=== PATIENT | male | born 1950 | race Caucasian/White ===

== ENCOUNTER 2017-05-30 10:13 | Emergency (ER) | payer MEDICARE, OTHER ==
[2017-05-30] MEDS ORDERED: Ketorolac Tromethamine 30 MG/ML VIAL ONE (11:04)
--- NOTE | 2017-05-30 11:28 | RAD ---
LUMBAR SPINE THREE VIEWS: History: Hip pain. Back pain radiating down the back leg. FINDINGS: There are loss of lumbar lordosis with straightening of the lumbar spine. Degenerative changes are p resent at multiple levels. No fracture, subluxation, or bony destruction is identified. IMPRESSION: Lumbar spondylosis. POS: [facility]
--- NOTE | 2017-05-30 11:30 | RAD ---
FRONTAL RADIOGRAPH PELVIS: Date: 05-30-17 Comparison: None. History: Pain. FINDINGS: The ==== appears intact. There is no widening of the sacroiliac joints or the pubic symphysis. There is multilevel lumbar spine osteophyte formation. There is no acute fracture or evidence of dislocat ion. There is curvilinear lucency in the region of the femoral head/neck junction superiorly on the left which is likely artifactual on the basis of osteophyte associated with the posterior limb of the iain tabulum. IMPRESSION: Degenerative changes. No acute osseous abnormality apparent. POS: [facility]
== END 2017-05-30 12:45 | disposition home or self-care (01) ==
LOC: ERS 10:13
DX: M54.31 Sciatica, right side (principal); I25.2 Old myocardial infarction; E78.5 Hyperlipidemia, unspecified; E11.9 Type 2 diabetes mellitus without complications; I10 Essential (primary) hypertension; Z79.82 Long term (current) use of aspirin; Z79.84 Long term (current) use of oral hypoglycemic drugs; Z79.899 Other long term (current) drug therapy
CPT/HCPCS: 72100; 72170; 96372; J1885

== ENCOUNTER 2017-08-14 09:00 | Outpatient (CLI) | payer MEDICARE ==
[2017-08-14 14:19] LABS: Hemoglobin 13.7 g/dL (14.0-18.0); Mean Corpuscular HGB CONC 33.3 g/dL (32.0-36.0); Mean Corpuscular Hemoglobin 28.8 pg (27.0-31.0); Mean Corpuscular Volume 86.4 fl (80.0-94.0); Mean Platelet Volume 9.5 fL (7.4-10.4); Platelet Count 144 thou/uL (130-400); RBC Distribution Width 12.8 % (11.5-14.5); Red Blood Cell (RBC) Count 4.77 mill/uL (4.70-6.10); White Blood Cell (WBC) Count 4.9 thou/uL (4.8-10.8)
[2017-08-14 14:24] LABS: PTT 28.5 SEC (22.9-36.1); Prothrombin Time 13.3 SEC (12.0-14.7)
[2017-08-14 14:41] LABS: Anion Gap 16 mmol/L (10-20); BUN (Urea Nitrogen) 22 mg/dL (8.4-25.7); Calc. Creatinine Clearance 0 mL/min (70-130); Calcium 9.4 mg/dL (7.8-10.44); Carbon Dioxide 26 mmol/L (23-31); Chloride 107 mmol/L (98-107); Estimated GFR-MDRD 83; Glucose 145 mg/dL (80-115); Potassium 4.6 mmol/L (3.5-5.1); Sodium 144 mmol/L (136-145)
== END 2017-08-14 09:01 | disposition home or self-care (01) ==
LOC: LABBT 09:00
PROVIDERS: ATTEND Surgery
DX: Z01.818 Encounter for other preprocedural examination (principal); M48.061 Spinal stenosis, lumbar region without neurogenic claudication; M54.16 Radiculopathy, lumbar region
CPT/HCPCS: 80048; 85027; 85610; 85730; 93005; 93010

== ENCOUNTER 2017-08-22 07:28 | Day surgery (SDC) | payer MEDICARE ==
[2017-08-14 12:40] VITALS: BMI 36.6
[2017-08-22] MEDS ORDERED: CEFAZOLIN/Water 2 GM/20 ML SYRINGE ONE (08:43)
[2017-08-22] MEDS ORDERED: Thrombin 5000 UNITS/5 ML VIAL ONE (10:26)
[2017-08-22] MEDS ORDERED: Bacitracin Zinc Ointment 30 gm TUBE ONE (10:26)
[2017-08-22] MEDS ORDERED: Sodium Chloride 0.9% 10 ML ONE (10:26)
[2017-08-22] MEDS ORDERED: Midazolam HCl 2 mg/2 ml Vial ONE (10:35)
[2017-08-22] MEDS ORDERED: Fentanyl 250 MCG/5 ML VIAL ONE (10:43)
[2017-08-22] MEDS ORDERED: Ondansetron HCl/PF 4 MG/2 ML Vial ONE (11:23)
[2017-08-22] MEDS ORDERED: PHENYLEPHRINE-NS 100 MCG/ML 10 ML SYRINGE ONE (11:23)
[2017-08-22] MEDS ORDERED: Lidocaine 1% PF 5 ML VIAL ONE (11:23)
[2017-08-22] MEDS ORDERED: PROPOFOL 200 MG/20 ML VIAL ONE (11:23)
[2017-08-22] MEDS ORDERED: Ketorolac Tromethamine 30 MG/ML VIAL ONE (11:23)
[2017-08-22] MEDS ORDERED: Glycopyrrolate 0.2 MG/ML 5 ML SYRINGE ONE (11:23)
[2017-08-22] MEDS ORDERED: Ondansetron HCl/PF 4 MG/2 ML Vial IVP PRN ×2 (13:06→14:05)
[2017-08-22] MEDS ORDERED: Mag-Al 1200 mg/1200 mg/30 ML UDCUP PO PRN (13:06)
[2017-08-22] MEDS ORDERED: Acetaminophen/Codeine 30-300mg Tablet PO PRN (13:06)
[2017-08-22] MEDS ORDERED: Fleet Enema 133 ML BOT PR PRN (13:06)
[2017-08-22] MEDS ORDERED: Promethazine HCl 25 MG/ML VIAL IM PRN (13:06)
[2017-08-22] MEDS ORDERED: Milk Of Magnesia 30 ML UDCUP PO PRN (13:06)
[2017-08-22] MEDS ORDERED: Bisacodyl 10 MG SUPP PR PRN (13:06)
[2017-08-22] MEDS ORDERED: traMADol HCl 50 MG TAB PO PRN (13:06)
[2017-08-22] MEDS ORDERED: tiZANidine HCl 4 MG TAB PO PRN (13:06)
[2017-08-22] MEDS ORDERED: SUGAMMADEX SODIUM 200 MG/2 ML VIAL ONE (13:13)
[2017-08-22] MEDS ORDERED: Metoprolol Tartrate 5 MG/5 ML VIAL ONE (13:18)
[2017-08-22] MEDS ORDERED: Morphine 4 MG/ML Carpuject SLOW IVP PRN (13:30)
[2017-08-22] MEDS ORDERED: Fentanyl 100 MCG/2 ML VIAL ONE (14:04)
[2017-08-22] MEDS: HYDROcodone/Acetaminophen 7.5/325 mg Tablet PO PRN (16:12)
[2017-08-22] MEDS: Gabapentin 300 MG CAP PO SCH ×2 (16:12→20:31)
[2017-08-22] MEDS: Sodium Chloride 0.9% 1,000 ML IV SCH (16:13)
[2017-08-22] MEDS: metFORMIN 500 MG TAB PO SCH (16:25)
[2017-08-22] MEDS: CEFAZOLIN/Water 2 GM/20 ML SYRINGE SLOW IVP SCH (16:25)
--- NOTE | 2017-08-22 19:41 | OP ---
OR: 12. WOUND TYPE: Type 1 wound. SURGEON: Marcus Bhatt M.D. EXPERIMENTAL MACHINIST: Hemanth Barragan PA-C. PREPROCEDURE DIAGNOSIS: Lumbar stenosis with low back and leg pain. POSTPROCEDURE DIAGNOSES: Lumbar stenosis with low back and leg pain. PROCEDURE: 1. L3-L4 and L4-L5 laminectomies, partial facetectomies, foraminotomies of the L3, L4, and L5 roots. DESCRIPTION OF PROCEDURE: After informed consent was obtained from the patient, the patient brought to OR 12. Proper patient pause and identification was carried out. He was positioned prone on the o perating room table. All appropriate points were padded and identified the L3, L4, L5 dorsal spines. An incision was drawn out over this region. This area was sterilely cleansed, prepared, and draped . Proper patient pause and identification was carried out. The wound was then opened with a combina tion of sharp, monopolar, and blunt dissection, and the L3, L4, L5 dorsal spines and lamina were expo sed. Localization film confirmed our area of interest. We then performed L3, L4, L5 laminectomies, partial facetectomies with foraminotomies over the L3, L4, L5 nerve roots. We had excellent decompre ssion of the common dural tube and the nerve roots. There was no spinal fluid leak. Hemostasis was maximized throughout. The wound was then closed in anatomic layers following the sprinkling of vanco mycin powder. The patient then emerged from anesthesia.
[2017-08-22] MEDS: Fenofibrate Nanocrystallized 145 MG TAB PO SCH (20:30)
[2017-08-22] MEDS: Rosuvastatin 20 MG TAB PO SCH (20:31)
[2017-08-23] MEDS: Sodium Chloride 0.9% 1,000 ML IV SCH ×2 (01:22→14:21)
[2017-08-23] MEDS: CEFAZOLIN/Water 2 GM/20 ML SYRINGE SLOW IVP SCH (01:22)
[2017-08-23] MEDS: Acetaminophen 325 MG TAB PO PRN ×2 (08:13→16:15)
[2017-08-23] MEDS: Gabapentin 300 MG CAP PO SCH ×3 (08:13→20:12)
[2017-08-23] MEDS: Lisinopril 20 MG TAB PO SCH (08:13)
[2017-08-23] MEDS: Isosorbide Dinitrate 20 MG TAB PO SCH (08:13)
[2017-08-23] MEDS: metFORMIN 500 MG TAB PO SCH ×2 (08:13→17:28)
[2017-08-23] MEDS: Ubidecarenone 50 MG CAP PO SCH (09:16)
--- NOTE | 2017-08-23 10:07 | PRG ---
DATE OF SERVICE: 08/23/2017 Mr. Benedict is postoperative day 1 from lumbar decompression. He is doing well with improvement in h is right leg pain. He is starting to mobilize. We are working on pain issues at this point. Hopefu lly he may be dismissed later today. He has good strength in his lower extremity myotomes.
[2017-08-23] MEDS: Rosuvastatin 20 MG TAB PO SCH (20:12)
[2017-08-23] MEDS: Fenofibrate Nanocrystallized 145 MG TAB PO SCH (20:12)
[2017-08-23] MEDS: HYDROcodone/Acetaminophen 7.5/325 mg Tablet PO PRN (22:49)
[2017-08-24] MEDS: HYDROcodone/Acetaminophen 7.5/325 mg Tablet PO PRN ×2 (02:28→09:56)
[2017-08-24] MEDS: Sodium Chloride 0.9% 1,000 ML IV SCH (05:15)
[2017-08-24] MEDS: metFORMIN 500 MG TAB PO SCH (08:01)
[2017-08-24] MEDS: Gabapentin 300 MG CAP PO SCH (08:01)
[2017-08-24] MEDS: Lisinopril 20 MG TAB PO SCH (08:01)
[2017-08-24] MEDS: Isosorbide Dinitrate 20 MG TAB PO SCH (08:01)
[2017-08-24] MEDS: Ubidecarenone 50 MG CAP PO SCH (09:56)
[2017-08-24 12:06] VITALS: BP 176/82; TEMP 98.1
--- NOTE | 2017-08-24 13:47 | PRG ---
DATE OF SERVICE: 08/24/2017 Mr. Benedict continues to do well following his lumbar laminectomy. He is mobilizing and feeling impr ovement in his leg pain. His wound is healing well. His strength is excellent throughout his lower extremity myotomes. We are arranging for dismissal for the patient.
== END 2017-08-24 13:11 | disposition home or self-care (01) ==
LOC: SDC 07:28 → T4-A 13:06 → SDC 08-24 13:11
PROVIDERS: ATTEND Surgery
PROC: 01NB0ZZ Release Lumbar Nerve, Open Approach (ICD-10-PCS; principal; 2017-08-22)
DX: M48.061 Spinal stenosis, lumbar region without neurogenic claudication (principal); M54.16 Radiculopathy, lumbar region; I25.2 Old myocardial infarction; K21.9 Gastro-esophageal reflux disease without esophagitis; E78.5 Hyperlipidemia, unspecified; E11.9 Type 2 diabetes mellitus without complications; I10 Essential (primary) hypertension; Z79.82 Long term (current) use of aspirin; Z79.84 Long term (current) use of oral hypoglycemic drugs; Z79.1 Long term (current) use of non-steroidal anti-inflammatories (NSAID); Z79.899 Other long term (current) drug therapy; Z98.890 Other specified postprocedural states
CPT/HCPCS: 36416; 76001; A4216; J1885; J2001; J2250; J2270; J2405; J2704; J3010; J3370; J3490

== ENCOUNTER 2017-08-24 20:27 | Observation (INO) | payer MEDICARE ==
[2017-08-24 21:32] LABS: #Eosinphils 0.2 thou/uL (0.0-0.7); #Lymphocytes 2.3 thou/uL (1.20-3.40); #Monocytes 0.9 thou/uL (0.11-0.59); #Neutrophils 4.5 thou/uL (1.40-6.50); %Basophils 0.5 % (0.0-1.0); %Eosinophils 2.1 % (0.0-10.0); %Lymphocytes 29.1 % (21.0-51.0); %Monocytes 10.8 % (0.0-10.0); %Neutrophils 57.5 % (42.0-75.0); Hemoglobin 12.1 g/dL (14.0-18.0); Mean Corpuscular HGB CONC 32.3 g/dL (32.0-36.0); Mean Corpuscular Hemoglobin 27.7 pg (27.0-31.0); Mean Platelet Volume 9.3 fL (7.4-10.4); Platelet Count 120 thou/uL (130-400); RBC Distribution Width 12.6 % (11.5-14.5); Red Blood Cell (RBC) Count 4.37 mill/uL (4.70-6.10); White Blood Cell (WBC) Count 7.9 thou/uL (4.8-10.8)
[2017-08-24 21:51] LABS: ALT (SGPT) 16 U/L (8-55); AST (SGOT) 20 U/L (5-34); Albumin 3.6 g/dL (3.4-4.8); Alkaline Phosphatase 44 U/L (40-150); Anion Gap 13 mmol/L (10-20); BUN (Urea Nitrogen) 15 mg/dL (8.4-25.7); Bilirubin, Total 0.6 mg/dL (0.2-1.2); Calc. Creatinine Clearance 0 mL/min (70-130); Calcium 9.2 mg/dL (7.8-10.44); Carbon Dioxide 28 mmol/L (23-31); Chloride 105 mmol/L (98-107); Estimated GFR-MDRD 69; Globulin 2.6 g/dL (2.4-3.5); Glucose 229 mg/dL (80-115); Potassium 3.7 mmol/L (3.5-5.1); Protein, Total 6.2 g/dL (5.8-8.1); Sodium 142 mmol/L (136-145)
[2017-08-24 22:58] LABS: Bilirubin Negative (Negative); Blood, Urine Negative (Negative); Clarity CLEAR (Clear); Glucose, Urine (Dipstick) >=1000 mg/dL (Negative); Leukocyte Negative (Negative); Nitrite Negative (Negative); Protein, Urine (Dipstick) Trace mg/dL (Neg-Trace); Specific Gravity, Urine 1.027 (1.002-1.036); pH, Urine 6.5 (5.0-9.0)
[2017-08-25] MEDS ORDERED: Ondansetron HCl/PF 4 MG/2 ML Vial IVP PRN (00:04)
[2017-08-25] MEDS ORDERED: Acetaminophen/Codeine 30-300mg Tablet PO PRN ×2 (00:04)
[2017-08-25] MEDS ORDERED: Morphine 2 MG/ML SYRINGE SLOW IVP PRN (00:04)
[2017-08-25] MEDS ORDERED: Morphine 4 MG/ML Carpuject SLOW IVP PRN (00:04)
--- NOTE | 2017-08-25 01:51 | HP ---
HISTORY OF PRESENT ILLNESS: Mr. Benedict is a 67-year-old male that had L3 through L5 laminectomy with Dr. Bhatt on 08/22/2017. He was discharged on Monday from [facility]. Today, he returns to [facility] with subjective leg weakness, hypertension, hallucinations. He called earlier this afternoon and was having severe bilateral leg pain. I advised him to take an increase in his [place] from 5/325 to 10/325. Apparently, this did not help. Thereafter presenting to the emergency department at [facility], I evaluated him, he has some subjective leg weakness; however, he has got good strength in his lower extremities bilaterally. He is able to stand and walk. There are some dermatomal radicular symptoms in the L5 dermatome bilaterally, but most of the pain is in the low back and buttock. He reports having a hypertensive episode today in which he felt dizzy and got diaphoretic. Systolic blood pressure was 240mmHg at that time in the home. This was obtained by his daughter who is a NON DESTRUCTIVE EVALUATION SPECIALIST. He denies any bowel or bladder incontinence. On exam, he is having some urinary retention, and which was catheterized and 500 mL urine was retrieved. Neurosurgery was consulted because of the pain postoperatively. REVIEW OF SYSTEMS: Ten-point review of systems completed. The patient reports low back pain, bilateral leg pain. Denies any neck pain, denies bowel or bladder incontinence or saddle anesthesia. Denies any headache at that time. Admits to hypertensive episode, diaphoretic, dizziness. All other review of systems is negative unless stated in the above HPI. PAST MEDICAL HISTORY: Myocardial infarction x2, GERD, flu vaccine not up to date, history of diabetes, hyperlipidemia, high cholesterol, and hypertension. PAST SURGICAL HISTORY: Cardiac stent placed in 2000. PSYCHIATRIC HISTORY: No previous psychiatric history. SOCIAL HISTORY: Patient drinks socially. He denies any drug use. Has no smoking history. ALLERGIES: CODEINE PHOSPHATE. CURRENT MEDICATIONS: 1. Aspirin 81 mg oral. 2. Metformin 500 mg oral. 3. Naproxen 250 mg oral. 4. CoQ10 strength 250 mg oral. 5. Isosorbide mononitrate extended-release tablet 24 hours 30 mg oral. 6. Crestor 20 mg oral. 7. Metoprolol tartrate 30 mg oral. 8. Lisinopril 20 mg oral. 9. Fenofibrate 150 mg oral. On admission to the emergency department, blood pressure was 194/95, temperature 98.2. Pain was 8/10. O2 sats was 96% on room air. PHYSICAL EXAMINATION: GENERAL: The patient is hypertensive. Vital signs have been reviewed. He is afebrile. He is alert and oriented to person, place, and time. HEENT: Normocephalic, atraumatic. Hearing intact. Moist mucous membranes. Trachea is midline. EYES: Pupils are equal and reactive to light. Extraocular muscles are intact. Sclerae are white, nonicteric. There is no nystagmus. NECK: The patient has a supple neck. Normal range of motion. No midline tenderness on the midline cervical spine. No meningeal signs. RESPIRATORY: The patient has bilateral symmetric chest rise. Appears to be no shortness of breath. CARDIOVASCULAR: The patient has regular rate and rhythm, normal S1, S2 heart sounds. EXTREMITIES: No distal cyanosis or clubbing noted. BACK: The patient positive for straight leg raise on the right and left causing right-sided pain and left-sided pain. He has lumbar spinal incision, was closed with dimitri clean, dry, and intact. There are no signs of erythema or purulent discharge from the incision. Lower extremity, patient has active range of motion in the hip that causes pain, passive range of motion that causes pain. Sensation is intact. There are no focal, motor, or sensory deficits in the lower extremities. NEUROLOGIC: Cranial nerves II through XII are grossly intact. Speech is fluent , answers my questions appropriately. Patient had abnormal gait antalgic when walking. No signs of cauda equina syndrome. PSYCHIATRIC: The patient has normal psychiatric exam. Normal affect. ASSESSMENT: Mr. Benedict is a 67-year-old male status post L3 through L5 laminectomy with Dr. Bhatt on 08/22/2017. I will admit him to observation overnight and control his pain. We will start some Decadron for nerve pain in the lower extremity and low-dose gabapentin. If there are any further questions , please feel free to contact Neurosurgery. [facility]
[2017-08-25 02:23] VITALS: BMI 40.7
[2017-08-25] MEDS: Dexamethasone 4 mg/ml Vial SLOW IVP SCH ×3 (03:06→17:55)
[2017-08-25] MEDS: Sodium Chloride 0.9% 1,000 ML IV SCH ×2 (03:06→14:21)
[2017-08-25] MEDS ORDERED: Dextrose 5% in Water 1,000 ML IV PRN (04:20)
[2017-08-25] MEDS ORDERED: Dextrose 50% Abboject 50 ML SYRINGE SLOW IVP PRN (04:20)
[2017-08-25] MEDS ORDERED: HumaLOG 300 UNITS/3 ML VIAL SC PRN (04:20)
[2017-08-25] MEDS: Tamsulosin HCl 0.4 MG CAP PO SCH (05:34)
[2017-08-25] MEDS: HYDROcodone/Acetaminophen 10/325 mg Tablet PO PRN ×4 (06:28→21:18)
--- NOTE | 2017-08-25 08:01 | PDOC.PN ---
- Subjective Encounter Start Date: 08/25/17 Encounter Start Time: 07:45 Subjective: Consult for med mgmt. s/p Lumbar laminectomies L3-L5 POD #3 admitted -: for pain, leg weakness and urinary urgency. Hx of DM, HTN, CAD on med -: tx. BP labile at home but stable currently. - Objective MAR Reviewed: Yes Vital Signs & Weight: Vital Signs (12 hours) Temp Pulse Resp BP BP Pulse Ox 08/25/17 07:53 98.3 F 86 20 171/90 H 94 L 08/25/17 06:24 98.8 F 87 18 176/90 H 96 08/25/17 01:00 98.1 F 70 18 136/79 94 L Weight Weight 244 lb 11.41 oz I&O: 08/24/17 08/25/17 08/26/17 06:59 06:59 06:59 Intake Total 241 Balance 241 Result Diagrams: 08/24/17 21:21 08/24/17 21:21 Additional Labs: Accuchecks 08/25/17 05:29 POC Glucose 172 H EKG Reviewed by me: Yes (NSR in 70's, no acute ST-T wave changes) Dx/Plan (1) HTN (hypertension) Code(s): I10 - ESSENTIAL (PRIMARY) HYPERTENSION Status: Chronic Qualifiers: Hypertension type: essential hypertension Qualified Code(s): I10 - Essential (primary) hypertension (2) DM II (diabetes mellitus, type II), controlled Code(s): E11.9 - TYPE 2 DIABETES MELLITUS WITHOUT COMPLICATIONS Status: Chronic (3) CAD (coronary artery disease) Code(s): I25.10 - ATHSCL HEART DISEASE OF [place] CORONARY ARTERY W/O ANG PCTRS Status: Acute (4) Status post lumbar laminectomy Code(s): Z98.890 - OTHER SPECIFIED POSTPROCEDURAL STATES Status: Acute - Plan * .
[2017-08-25] MEDS: metFORMIN 500 MG TAB PO SCH ×2 (08:24→17:00)
[2017-08-25] MEDS: Gabapentin 300 MG CAP PO SCH ×3 (08:25→20:30)
[2017-08-25] MEDS: Isosorbide Dinitrate 20 MG TAB PO SCH (08:25)
[2017-08-25] MEDS ORDERED: Lisinopril 20 MG TAB PO SCH ×2 (09:00→19:30)
--- NOTE | 2017-08-25 09:36 | PRG ---
DATE OF SERVICE: 08/25/2017 Mr. Benedict was readmitted late last night with complaints of hypertension, blurred vision and possib le hallucinations with subjective bilateral lower extremity leg weakness. The patient is status post L3-L5 laminectomies on 08/22/[address] Bhatt. The patient states in regards to his back symptoms he is feeling much better. He was placed on Decadron 4 mg q.6 hours and Protonix as well as gabapen tin. Our medical colleagues were consulted in regards to patient's medical concerns as well. At this time , the patient needs medical management. In regards to his surgery he is doing well. He has asked megan ugalde that he go to a prison versus rehab as long as his insurance will pay for this. [place] they not, he may be a good candidate for home health therapy once his medical conditions are under better control including diabetes and hypertension. We appreciate our [facility] colleagues following the patient. At this time, he remains at neurologic baseline with good strength in the bilateral lower extremities and his incision is clean, dry, and intact, closed with dimitri without any dehiscence or drainage. I would like to limit the amount of Decadron he is taking and I am comfortable with him c oming off of this at any time, especially again given the fact that he has had difficulty with managi ng his blood sugar. We will wait for suggestions per case management for discharge planning. [facility] [facility] team will take over if he is still admitted tomorrow.
[2017-08-25] MEDS ORDERED: cloNIDine 0.1 MG TAB PO PRN (11:19)
[2017-08-25] MEDS: Insulin Regular 300 UNITS/3 ML VIAL SC PRN ×2 (12:22→17:01)
[2017-08-25] MEDS: hydrALAZINE 20 MG/ML VIAL SLOW IVP PRN (17:02)
--- NOTE | 2017-08-25 17:16 | CON ---
DATE OF CONSULTATION: 08/25/2017 DATE OF ADMISSION: 08/25/2017 ATTENDING PHYSICIAN: Dr. Marcus Bhatt. CONSULTING PHYSICIAN: Dr. Bipin Eduardo. REASON FOR CONSULT: Manage medical problems. HISTORY OF PRESENT ILLNESS: Mr. Benedict is a 67-year-old male with past medical history of hypertension, diabetes mellitus and recent laminectomy, who was readmitted because of severe back pa in, leg pain, weakness and confusion. The patient had laminectomy done 3 days ago and went home yest erday, but came back immediately because patient was having severe pain and elevated blood pressure a s well as diaphoresis, also was seeing things possibly in visual hallucinations. The patient could n ot ambulate because of severe pain to the back and legs. The patient was readmitted by the Neurosurg mi. The patient was found to have markedly elevated blood pressure. PAST MEDICAL HISTORY: 1. Hypertension. 2. Diabetes mellitus. 3. Chronic back pain. 4. History of myocardial infarction x2. 5. Gastroesophageal reflux disease. 6. Hyperlipidemia. PAST SURGICAL HISTORY: Status post laminectomy with recent L3-L5, status post cardiac stent in 2000. ALLERGIES: CODEINE PHOSPHATE. CURRENT MEDICATIONS: The patient is on aspirin 81 mg daily, isosorbide dinitrate 30 mg daily, lisino pril 20 mg daily, metformin 1000 b.i.d., metoprolol 50 mg daily, Crestor 20 mg daily, Protonix 40 mg daily, Flomax 0.4 mg daily and [place] 1 q.i.d. p.r.n. FAMILY HISTORY: Nothing contributory. SOCIAL HISTORY: The patient lives with family. No history of smoking. No history of alcohol intake . REVIEW OF SYSTEMS: Cardiovascular: No chest pain. No shortness of breath. Respiratory: No fever or cough. Gastrointestinal: No nausea or vomiting. No abdominal pain. Genitourinary: No distensi on. Central Nervous System: Has headache and weakness. PHYSICAL EXAMINATION: GENERAL: The patient is alert, awake and oriented x3. VITAL SIGNS: Temperature 98, pulse 86, respirations 20 and blood pressure 170/90. HEENT: Head is normocephalic and atraumatic. Pupils are equal and reactive. Nasopharynx is pink an d moist. NECK: Supple. No JVD. LUNGS: Bilateral air entry with no rales, no rhonchi. HEART: S1 and S2 regular. ABDOMEN: Soft. No distention, no tenderness. Normal bowel sounds present. RECTAL: Deferred. CENTRAL NERVOUS SYSTEM: No focal deficits. LABORATORY DATA AND X-RAY FINDINGS: CBC shows WBC of 7.9, hemoglobin 12, hematocrit 37 and platelets 120. Metabolic panel: Sodium 140, potassium 3.6, chloride 105, CO2 of 28, BUN 15, creatinine 1 and glucose 229. Urinalysis negative. EKG shows normal sinus rhythm. No acute ST-T wave changes seen. ASSESSMENT: 1. Diabetes mellitus. 2. Hypertension, uncontrolled. 3. Severe back pain and leg pain. 4. Weakness. 5. Recent laminectomy, L3-L5. PLAN: 1. Accu-Cheks a.c. and bedtime. 2. Sliding scale mild with regular insulin. 3. Start home medications. 4. Clonidine 0.1 q.6 p.r.n. 5. Discontinue Tylenol #3. Thank you very much for the consult. I will follow.
[2017-08-25] MEDS: Rosuvastatin 20 MG TAB PO SCH (20:29)
[2017-08-25] MEDS: Fenofibrate Nanocrystallized 145 MG TAB PO SCH (20:30)
[2017-08-26] MEDS: Sodium Chloride 0.9% 1,000 ML IV SCH ×2 (03:38→16:29)
[2017-08-26] MEDS: Dexamethasone 4 mg/ml Vial SLOW IVP SCH ×3 (03:38→16:29)
[2017-08-26] MEDS: Tamsulosin HCl 0.4 MG CAP PO SCH (05:44)
[2017-08-26] MEDS: Insulin Regular 300 UNITS/3 ML VIAL SC PRN ×3 (06:43→20:18)
[2017-08-26] MEDS: Isosorbide Dinitrate 20 MG TAB PO SCH (09:02)
[2017-08-26] MEDS: Gabapentin 300 MG CAP PO SCH ×3 (09:04→20:11)
[2017-08-26] MEDS: metFORMIN 500 MG TAB PO SCH ×2 (09:04→16:30)
[2017-08-26] MEDS: Lisinopril 20 MG TAB PO SCH ×2 (09:04→20:11)
--- NOTE | 2017-08-26 12:25 | PRG ---
DATE OF SERVICE: 08/26/2017 SUBJECTIVE: Mr. Benedict is now on his second day in his hospital stay after readmission following a lumbar laminectomy with Dr. Bhatt. We are awaiting rehab placement. He overall looks to be very mu ch more well-appearing than what he felt upon admission and has been ambulating with a walker in the hallway with relative ease. He does continue to have the expected backaches after this type of surge ry. We will continue to work with case management to see if we can get him over to rehab as soon as possible.
[2017-08-26] MEDS ORDERED: Amlodipine 5 MG TAB PO SCH (19:30)
[2017-08-26] MEDS: HYDROcodone/Acetaminophen 10/325 mg Tablet PO PRN (20:10)
[2017-08-26] MEDS: Rosuvastatin 20 MG TAB PO SCH (20:11)
[2017-08-26] MEDS: Fenofibrate Nanocrystallized 145 MG TAB PO SCH (20:13)
[2017-08-26] MEDS: tiZANidine HCl 4 MG TAB PO PRN (21:30)
[2017-08-27] MEDS: Dexamethasone 4 mg/ml Vial SLOW IVP SCH ×3 (02:10→17:24)
[2017-08-27] MEDS: Tamsulosin HCl 0.4 MG CAP PO SCH (06:00)
[2017-08-27] MEDS: Insulin Regular 300 UNITS/3 ML VIAL SC PRN ×4 (06:03→20:54)
[2017-08-27] MEDS: Isosorbide Dinitrate 20 MG TAB PO SCH (07:58)
[2017-08-27] MEDS: Lisinopril 20 MG TAB PO SCH ×2 (08:00→20:53)
[2017-08-27] MEDS: Gabapentin 300 MG CAP PO SCH ×3 (08:00→20:53)
[2017-08-27] MEDS: metFORMIN 500 MG TAB PO SCH ×2 (08:00→17:24)
[2017-08-27] MEDS ORDERED: Amlodipine 5 MG TAB PO SCH (09:00)
[2017-08-27] MEDS: Sodium Chloride 0.9% 1,000 ML IV SCH ×2 (09:46→20:58)
--- NOTE | 2017-08-27 10:47 | PRG ---
DATE OF SERVICE: 08/27/2017 SUBJECTIVE: Mr. Benedict this morning is doing well. He is ambulating in the hallway, still using a walker. His pain has diminished a great deal, but we are still awaiting on rehab placement. I do no t see any additional notes from case management other than the initial request for rehabilitation to the facility. It looks like PT is supposed to be coming to evaluate him today. We discussed a littl e bit that he may not even need rehabilitation, so we will see if he does well enough with physical t herapy, perhaps we can just get him home with may be home health. We will continue to monitor.
[2017-08-27] MEDS: hydrALAZINE 20 MG/ML VIAL SLOW IVP PRN (17:25)
[2017-08-27] MEDS ORDERED: Amlodipine 10 MG TAB PO SCH (18:00)
[2017-08-27] MEDS: Rosuvastatin 20 MG TAB PO SCH (20:53)
[2017-08-27] MEDS: Fenofibrate Nanocrystallized 145 MG TAB PO SCH (20:53)
[2017-08-27] MEDS: HYDROcodone/Acetaminophen 10/325 mg Tablet PO PRN (20:54)
[2017-08-27] MEDS: tiZANidine HCl 4 MG TAB PO PRN (22:25)
[2017-08-28] MEDS: Dexamethasone 4 mg/ml Vial SLOW IVP SCH ×2 (03:30→08:52)
[2017-08-28] MEDS: Tamsulosin HCl 0.4 MG CAP PO SCH (06:07)
[2017-08-28] MEDS: Insulin Regular 300 UNITS/3 ML VIAL SC PRN ×2 (06:07→10:59)
[2017-08-28 08:31] VITALS: TEMP 98.1
[2017-08-28] MEDS: Isosorbide Dinitrate 20 MG TAB PO SCH (08:58)
[2017-08-28] MEDS: metFORMIN 500 MG TAB PO SCH (08:58)
[2017-08-28] MEDS: Lisinopril 20 MG TAB PO SCH (08:59)
[2017-08-28] MEDS: Gabapentin 300 MG CAP PO SCH (08:59)
[2017-08-28] MEDS ORDERED: Amlodipine 10 MG TAB PO SCH (09:00)
--- NOTE | 2017-08-28 09:25 | PRG ---
DATE OF SERVICE: 08/28/2017 This is a subsequent inpatient progress note. SUBJECTIVE: Mr. Benedict is now postoperative day #6, having undergone multiple lumbar laminectomies with Dr. Bhatt. The patient has required several overnight stay in the hospital for management of h is medical issues. He does state that he has posterior thigh pain bilaterally at night, which is mor e cramping and discomfort. He states this is unchanged from surgery. He states that the additional leg pain he experienced before surgery was improved with surgery into the bilateral legs. He has bee n walking with a walker and working with physical therapy. He has good strength in the bilateral low er extremities and his incision is closed with dimitri. It is clean, dry and intact and without any signs of dehiscence or drainage. At this time, we are waiting for some medical management including some hypertension. I will start to taper his Decadron at this time and to also help with his hypergl ycemia. He is stable for rehabilitation, anytime he is cleared by the medical services as completed the necessary paperwork. Please call with any changes or questions in the patient's neurologic statu s. This is Hemanth Barragan PA-C dictating for Dr. Marcus Bhatt.
[2017-08-28] MEDS: Sodium Chloride 0.9% 1,000 ML IV SCH (10:46)
[2017-08-28 10:59] VITALS: BP 132/60
[2017-08-28] MEDS ORDERED: Dexamethasone 1 MG TAB PO SCH (12:00)
[2017-08-30] MEDS ORDERED: Dexamethasone 1 MG TAB PO SCH (06:00)
[2017-09-01] MEDS ORDERED: Dexamethasone 1 MG TAB PO SCH (06:00)
== END 2017-08-28 14:23 ==
LOC: ERS 20:27 → T4-B 08-25 00:06
PROVIDERS: ADMIT Surgery; ATTEND Surgery
DX: G89.18 Other acute postprocedural pain (principal); I10 Essential (primary) hypertension; E11.9 Type 2 diabetes mellitus without complications; G89.29 Other chronic pain; I25.2 Old myocardial infarction; K21.9 Gastro-esophageal reflux disease without esophagitis; E78.5 Hyperlipidemia, unspecified; Z88.5 Allergy status to narcotic agent; Z79.82 Long term (current) use of aspirin; Z79.84 Long term (current) use of oral hypoglycemic drugs; Z79.899 Other long term (current) drug therapy; Z95.5 Presence of coronary angioplasty implant and graft; Z98.890 Other specified postprocedural states
CPT/HCPCS: 51701; 80053; 81003; 82962 ×4; 85025; 93005; 96361 ×4; 96374; 96375; 96376 ×4; 97139; 97530; 97535; 99285; G0378 ×2; G8978; G8979; G8987; G8988; 36415; 36416; J0360; J1100; J1815; J8540

== ENCOUNTER 2017-09-09 14:36 | Inpatient (IN) | payer MEDICARE ==
[2017-09-09 15:48] LABS: Base Excess-Venous -0.6 mmol/L (-30.0-30.0); Bicarbonate (HCO3v) 24.1 mmol/L (1.0-85.0); CO2 Tension (PvCO2) 38.9 mmHg (41.0-51.0); Calcium, Ionized 1.14 mmol/L (1.12-1.32); Hemoglobin - Calc 15.7 g/dL (12.0-18.0); O2 Tension (PvO2) 56.3 mmHg (35.0-45.0); Potassium 4.5 mmol/L (3.4-4.7); T. Carbon Dioxide 25.3 mmol/L (1.0-85.0); vO2 Saturation-calc 88.9 % (0.0-100.0)
[2017-09-09] MEDS ORDERED: Insulin Regular 300 UNITS/3 ML VIAL ONE (15:50)
--- NOTE | 2017-09-09 15:54 | RAD ---
PORTABLE CHEST 1 VIEW: HISTORY: A 67-year-old male with cough. COMPARISON: 07/24/05. FINDINGS: Heart size is within normal limits. The lungs are clear. Minimal horizontal linear parenchymal ball ges in the lung bases probably related to some chronic change or mild subsegmental atelectasis. Ther e is less inspiration than on the prior study. IMPRESSION: Minimal horizontal linear bibasilar parenchymal changes, possibly some chronic change or subsegmental atelectasis with some associated decreased inspiration from the prior study. No confluent pneumonia , overt edema, or other acute process. POS: [facility]
[2017-09-09 15:55] LABS: #Basophils 0.1 thou/uL (0.0-0.2); #Eosinphils 0.1 thou/uL (0.0-0.7); #Lymphocytes 1.8 thou/uL (1.20-3.40); #Monocytes 0.6 thou/uL (0.11-0.59); #Neutrophils 9.4 thou/uL (1.40-6.50); %Basophils 0.4 % (0.0-1.0); %Lymphocytes 15.2 % (21.0-51.0); %Monocytes 5.3 % (0.0-10.0); %Neutrophils 78.1 % (42.0-75.0); Hemoglobin 15.5 g/dL (14.0-18.0); Mean Corpuscular HGB CONC 34.6 g/dL (32.0-36.0); Mean Corpuscular Hemoglobin 29.1 pg (27.0-31.0); Mean Corpuscular Volume 84.1 fl (80.0-94.0); Mean Platelet Volume 9.4 fL (7.4-10.4); Platelet Count 166 thou/uL (130-400); RBC Distribution Width 12.9 % (11.5-14.5); Red Blood Cell (RBC) Count 5.33 mill/uL (4.70-6.10)
[2017-09-09 16:15] LABS: ALT (SGPT) 31 U/L (8-55); AST (SGOT) 26 U/L (5-34); Albumin 3.5 g/dL (3.4-4.8); Alkaline Phosphatase 65 U/L (40-150); Anion Gap 17 mmol/L (10-20); BUN (Urea Nitrogen) 39 mg/dL (8.4-25.7); Bilirubin, Total 0.6 mg/dL (0.2-1.2); CK (CPK) 54 U/L (30-200); Calc. Creatinine Clearance 0 mL/min (70-130); Calcium 9.1 mg/dL (7.8-10.44); Carbon Dioxide 22 mmol/L (23-31); Chloride 103 mmol/L (98-107); Estimated GFR-MDRD 56; Globulin 2.6 g/dL (2.4-3.5); Glucose 434 mg/dL (80-115); Lipase 155 U/L (8-78); Potassium 5.1 mmol/L (3.5-5.1); Protein, Total 6.1 g/dL (5.8-8.1); Sodium 137 mmol/L (136-145)
[2017-09-09 16:16] LABS: CKMB 2.8 ng/mL (0-6.6); Troponin I 0.011 ng/mL (< 0.028)
[2017-09-09 16:46] LABS: Bilirubin Negative (Negative); Blood, Urine Negative (Negative); Clarity CLEAR (Clear); Glucose, Urine (Dipstick) >=1000 mg/dL (Negative); Leukocyte Negative (Negative); Nitrite Negative (Negative); Protein, Urine (Dipstick) Negative (Neg-Trace); Urobilinogen 0.2 mg/dL (0.2-1.0); pH, Urine 5.5 (5.0-9.0)
[2017-09-09] MEDS ORDERED: Ondansetron ODT 4 MG TAB SL PRN (18:35)
[2017-09-09] MEDS ORDERED: Ondansetron HCl/PF 4 MG/2 ML Vial IVP PRN (18:35)
[2017-09-09] MEDS ORDERED: Sodium Chloride 0.9% 1,000 ML IV SCH (18:35)
[2017-09-09 18:45] VITALS: BMI 35.5
[2017-09-09] MEDS ORDERED: Dextrose 5% in Water 1,000 ML IV PRN (19:53)
[2017-09-09] MEDS ORDERED: Dextrose 50% Abboject 50 ML SYRINGE IVP PRN (19:53)
[2017-09-09] MEDS: HumaLOG 300 UNITS/3 ML VIAL SC PRN (21:57)
[2017-09-09] MEDS ORDERED: Insulin Detemir 100 UNITS/ML 10 UNITS in Pre-Filled Syringe 1 EACH SC SCH (23:30)
[2017-09-10] MEDS ORDERED: HYDROcodone/Acetaminophen 10/325 mg Tablet PO PRN (00:43)
[2017-09-10] MEDS ORDERED: Diclofenac Sodium 25 mg Tablet PO PRN (00:48)
[2017-09-10] MEDS: HumaLOG 300 UNITS/3 ML VIAL SC PRN ×6 (02:12→20:17)
[2017-09-10 06:29] LABS: Anion Gap 8 mmol/L (10-20); BUN (Urea Nitrogen) 23 mg/dL (8.4-25.7); Calc. Creatinine Clearance 133 mL/min (70-130); Calcium 8.3 mg/dL (7.8-10.44); Carbon Dioxide 29 mmol/L (23-31); Chloride 106 mmol/L (98-107); Estimated GFR-MDRD Greater than 90; Glucose 178 mg/dL (80-115); Potassium 4.3 mmol/L (3.5-5.1); Sodium 139 mmol/L (136-145)
[2017-09-10] MEDS: Sodium Chloride 0.9% 1,000 ML IV SCH ×2 (06:31→12:47)
[2017-09-10] MEDS ORDERED: Naproxen 500 MG TAB PO SCH (08:00)
[2017-09-10] MEDS: Aspirin 325 MG TAB PO SCH (08:29)
[2017-09-10] MEDS: Glimepiride 4 MG TAB PO SCH (08:30)
[2017-09-10] MEDS: metFORMIN 500 MG TAB PO SCH ×2 (08:30→17:12)
[2017-09-10] MEDS: Gabapentin 300 MG CAP PO SCH ×3 (08:30→20:15)
[2017-09-10] MEDS: Lisinopril 20 MG TAB PO SCH ×2 (08:31→20:15)
[2017-09-10] MEDS: Isosorbide Dinitrate 20 MG TAB PO SCH (08:31)
[2017-09-10] MEDS: Ubidecarenone 50 MG CAP PO SCH (08:32)
[2017-09-10] MEDS: Rosuvastatin 20 MG TAB PO SCH (20:15)
[2017-09-10] MEDS: Fenofibrate Nanocrystallized 145 MG TAB PO SCH (20:16)
[2017-09-10] MEDS: Insulin Detemir 100 UNITS/ML 20 UNITS in Pre-Filled Syringe 1 EACH SC SCH (20:48)
[2017-09-10] MEDS: HYDROcodone/Acetaminophen 10/325 mg Tablet PO PRN (20:52)
[2017-09-10] MEDS ORDERED: Insulin Detemir 100 UNITS/ML 10 UNITS in Pre-Filled Syringe 1 EACH SC SCH (21:00)
--- NOTE | 2017-09-11 00:09 | HP ---
DATE OF ADMISSION: 09/09/2017 CHIEF COMPLAINT: Evaluation of severe hyperglycemia. HISTORY OF PRESENT ILLNESS: Mr. Benedict is a 67-year-old male with past medical history of diabetes mellitus, hypertension and recent back surgery , who has been having increased blood sugars running around 400-500 at home. The patient is noncompliant with diet. The patient recently seen in the office , he was on metformin. Amaryl was added, but the patient continued to eat regular diet. The patient also complained of weakness and vision changes and polyuria, polydipsia. So in view of that, the patient's family brought him to the hospital. In the ER, the patient was evaluated and found to have markedly elevated blood sugar, dehydration and generalized weakness. He was given IV fluid bolus 2 L liters and given regular insulin 10 units, admitted for further evaluation and management. PAST MEDICAL HISTORY: 1. Hypertension. 2. Hyperlipidemia. 3. Gastroesophageal reflux disease. 4. Chronic back pain. 5. History of myocardial infarction x2. PAST SURGICAL HISTORY: Status post laminectomy, recent L3-L5, status post cardiac stent in 2000. ALLERGIES: CODEINE PHOSPHATE. CURRENT MEDICATIONS: The patient is on aspirin 81 mg daily, Imdur 30 mg daily, lisinopril 20 mg b.i.d., metformin 1000 b.i.d., metoprolol 50 b.i.d., Crestor 20 mg daily, Protonix 40 mg daily, Flomax 0.4 mg daily, [place] p.r.n., and Amaryl 4 mg daily. FAMILY HISTORY: Nothing of interest. SOCIAL HISTORY: The patient lives with family. No history of smoking. No history of alcohol intake. REVIEW OF SYSTEMS: Cardiovascular: No chest pain. No shortness of breath. Respiratory: No fever or cough. Gastrointestinal: No nausea or vomiting. No abdominal pain. Genitourinary: No distension. Central nervous system: No headache, no dizziness. PHYSICAL EXAMINATION: GENERAL: The patient is alert, awake, oriented x3. VITAL SIGNS: Temperature 98, pulse 90, respirations 20, blood pressure 120/60. HEENT: Head is normocephalic, atraumatic. Pupils equal and reactive to light. Nasopharynx is pale and dry. Hard and soft palate, no lesions seen. SKIN: Skin turgor decreased. NECK: Supple. No JVD. LUNGS: Bilateral air entry with no rales, no rhonchi. HEART: S1, S2 regular. ABDOMEN: Soft, no distention, no tenderness. Normal bowel sounds. RECTAL: Deferred. CENTRAL NERVOUS SYSTEM: No focal deficits. LABORATORY AND X-RAY FINDINGS: CBC shows WBC 12, hemoglobin 15, hematocrit 44, platelets 166. Metabolic panel: Sodium 137, potassium 5, chloride 103, CO2 of 20, BUN 30, glucose 434, CK-MB 2.8. Troponin 0.01, pH 7.4, pCO2 of 38, pO2 of 56, saturation 90%. Urinalysis negative, beta hydroxybutyrate 0.29. Chest x -ray shows some chronic changes. EKG shows normal sinus rhythm, no acute ST-T wave changes seen. ASSESSMENT: 1. Severe hyperglycemia due to uncontrolled diabetes. 2. Dehydration. 3. Generalized weakness. 4. Hypertension. 5. Hyperlipidemia. 6. Coronary artery disease. 7. History of myocardial infarction. 8. Status post back surgery. PLAN: 1. Vital signs q.4 hours. 2. Activity: As tolerated. 3. Allergies: CODEINE. 4. IV Fluids 1/2 normal at 100 mL per hour. 5. Intake and outflow. 6. Accu-Cheks a.c. and q.4 hours.. 7. Sliding scale aggressive with Humalog insulin. 8. Continue home medications. 9. Add Levemir insulin 10 units at bedtime. 10. Intake and output. 11. Continue home medications. MTDD
[2017-09-11] MEDS: Sodium Chloride 0.9% 1,000 ML IV SCH ×2 (04:39→17:59)
[2017-09-11] MEDS: HumaLOG 300 UNITS/3 ML VIAL SC PRN ×3 (05:27→17:06)
[2017-09-11 06:09] LABS: Hemoglobin A1c 9.9 % (4.0-6.0)
[2017-09-11 06:32] LABS: Anion Gap 9 mmol/L (10-20); BUN (Urea Nitrogen) 15 mg/dL (8.4-25.7); Calc. Creatinine Clearance 147 mL/min (70-130); Calcium 8.7 mg/dL (7.8-10.44); Carbon Dioxide 27 mmol/L (23-31); Chloride 104 mmol/L (98-107); Estimated GFR-MDRD Greater than 90; Glucose 299 mg/dL (80-115); Potassium 4.2 mmol/L (3.5-5.1); Sodium 136 mmol/L (136-145)
[2017-09-11] MEDS: Isosorbide Dinitrate 20 MG TAB PO SCH (08:58)
[2017-09-11] MEDS: Aspirin 325 MG TAB PO SCH (08:58)
[2017-09-11] MEDS: Gabapentin 300 MG CAP PO SCH ×3 (08:58→20:49)
[2017-09-11] MEDS: Ubidecarenone 50 MG CAP PO SCH (08:59)
[2017-09-11] MEDS: metFORMIN 500 MG TAB PO SCH ×2 (08:59→17:06)
[2017-09-11] MEDS: Glimepiride 4 MG TAB PO SCH (08:59)
[2017-09-11] MEDS: Lisinopril 20 MG TAB PO SCH ×2 (08:59→20:50)
[2017-09-11] MEDS: HYDROcodone/Acetaminophen 10/325 mg Tablet PO PRN (20:48)
[2017-09-11] MEDS: Fenofibrate Nanocrystallized 145 MG TAB PO SCH (20:49)
[2017-09-11] MEDS: Insulin Detemir 100 UNITS/ML 20 UNITS in Pre-Filled Syringe 1 EACH SC SCH (20:49)
[2017-09-11] MEDS: Rosuvastatin 20 MG TAB PO SCH (20:50)
[2017-09-12] MEDS: HYDROcodone/Acetaminophen 10/325 mg Tablet PO PRN (02:59)
[2017-09-12] MEDS: HumaLOG 300 UNITS/3 ML VIAL SC PRN (07:05)
[2017-09-12] MEDS: metFORMIN 500 MG TAB PO SCH (08:46)
[2017-09-12] MEDS: Aspirin 325 MG TAB PO SCH (08:46)
[2017-09-12] MEDS: Gabapentin 300 MG CAP PO SCH (08:46)
[2017-09-12 08:47] VITALS: BP 127/80
[2017-09-12] MEDS: Glimepiride 4 MG TAB PO SCH (08:47)
[2017-09-12] MEDS: Isosorbide Dinitrate 20 MG TAB PO SCH (08:47)
[2017-09-12] MEDS: Ubidecarenone 50 MG CAP PO SCH (08:47)
[2017-09-12] MEDS: Lisinopril 20 MG TAB PO SCH (08:47)
[2017-09-12 08:55] VITALS: TEMP 98.5
[2017-09-12] MEDS ORDERED: Insulin Detemir 100 UNITS/ML 30 UNITS in Pre-Filled Syringe 1 EACH SC SCH (21:00)
--- NOTE | 2017-09-13 13:03 | DIS ---
DATE OF ADMISSION: 09/09/2017 DATE OF DISCHARGE: 09/12/2017 ADMITTING DIAGNOSES: 1. Severe hyperglycemia due to uncontrolled diabetes. 2. Dehydration. 3. Generalized weakness. 4. Hypertension. 5. Hyperlipidemia. 6. Coronary artery disease. 7. History of myocardial infarction. 8. Status post back surgery. FINAL DIAGNOSES: 1. Severe hyperglycemia due to uncontrolled diabetes, improved. 2. Dehydration and acute kidney injury, improved. 3. Generalized weakness, improved. 4. Hypertension. 5. Hyperlipidemia. 6. Coronary artery disease. 7. Status post back surgery. BRIEF SUMMARY OF HOSPITAL COURSE: Mr. Benedict is a 67-year-old male admitted because of ma rkedly elevated blood sugar having 400-500 range. The patient was found to be dehydrated with acute kidney injury. He was started on IV fluids and received 2 liters on admission. His BUN, which was 3 9, came down to 15 with fluid therapy. His blood sugars also normalized, initially in the 400-500 ra nge and came down gradually to 300 then 200 and finally below 200. He was started on Levemir insulin as well as continued on metformin and started on a strict ADA diet. So, the patient has improved. In view of that, the patient was discharged home. At the time of discharge, he was stable. His neelima l signs were stable. Lungs were clear. Heart sounds regular. Abdomen was soft, nontender. Bowel s ounds present. DISCHARGE MEDICATIONS: Include omeprazole 20 mg daily, Crestor 20 mg daily, Imdur 30 mg daily, lisin opril 20 mg b.i.d., metoprolol 50 mg daily, metformin 1000 b.i.d., fenofibrate 145 at bedtime, gabape ntin 300 mg every 12 hours, diclofenac 75 mg p.r.n., [place] p.r.n., Amaryl 4 mg daily, Protonix 40 mg daily, Levemir insulin 30 units daily, and continue with ADA diet. FOLLOWUP: The patient will come for followup in 2 weeks.
--- NOTE | 2017-10-21 12:19 | EKG ---
Test Reason : Blood Pressure : / mmHG Vent. Rate : 089 BPM Atrial Rate : 089 BPM P-R Int : 160 ms QRS Dur : 102 ms QT Int : 376 ms P-R-T Axes : 049 056 047 degrees QTc Int : 457 ms Normal sinus rhythm Possible Left atrial enlargement Borderline ECG Confirmed by KAMALJIT CARDOZA, JOSE ([id number]), editorial project manager MITRA WERNER ([id number]) on 10/21/2017 12:18:30 PM Referred By: Confirmed By:JOSE MARI MD
== END 2017-09-12 10:01 | disposition home or self-care (01) | DRG 638 ==
LOC: ERS 14:36 → SURG B 16:29
PROVIDERS: ADMIT Internal Medicine; ATTEND Internal Medicine
DX: E11.65 Type 2 diabetes mellitus with hyperglycemia (principal); N17.9 Acute kidney failure, unspecified; E78.5 Hyperlipidemia, unspecified; E86.0 Dehydration; I10 Essential (primary) hypertension; Z91.11 Patient's noncompliance with dietary regimen; K21.9 Gastro-esophageal reflux disease without esophagitis; G89.29 Other chronic pain; M54.9 Dorsalgia, unspecified; I25.2 Old myocardial infarction; Z88.5 Allergy status to narcotic agent; Z79.82 Long term (current) use of aspirin; Z79.84 Long term (current) use of oral hypoglycemic drugs; Z79.899 Other long term (current) drug therapy; Z95.5 Presence of coronary angioplasty implant and graft
CPT/HCPCS: 36415; 36416; 71045; 80048; 80053; 81003; 82010; 82330; 82553; 82803; 83036; 83605; 83690; 83880; 84484; 85025; 87040; 87804; 93005; 96361; 96374; J1815

== ENCOUNTER 2018-08-01 13:29 | Inpatient (IN) | payer OTHER, MEDICARE ==
[2018-08-01 14:04] LABS: #Eosinphils 0.2 thou/uL (0.0-0.7); #Lymphocytes 1.5 thou/uL (1.20-3.40); #Monocytes 0.5 thou/uL (0.11-0.59); #Neutrophils 5.4 thou/uL (1.40-6.50); %Basophils 0.6 % (0.0-1.0); %Eosinophils 2.5 % (0.0-10.0); %Lymphocytes 19.3 % (21.0-51.0); %Monocytes 6.9 % (0.0-10.0); %Neutrophils 70.7 % (42.0-75.0); Hemoglobin 14.2 g/dL (14.0-18.0); Mean Corpuscular HGB CONC 33.1 g/dL (32.0-36.0); Mean Corpuscular Hemoglobin 28.4 pg (27.0-31.0); Mean Corpuscular Volume 85.7 fL (78.0-98.0); Mean Platelet Volume 8.2 fL (7.4-10.4); Platelet Count 195 thou/uL (130-400); RBC Distribution Width 13.3 % (11.5-14.5); Red Blood Cell (RBC) Count 5.01 mill/uL (4.70-6.10); White Blood Cell (WBC) Count 7.6 thou/uL (4.8-10.8)
[2018-08-01 14:36] LABS: ALT (SGPT) 49 U/L (8-55); AST (SGOT) 48 U/L (5-34); Albumin 3.8 g/dL (3.4-4.8); Alkaline Phosphatase 66 U/L (40-150); Anion Gap 15 mmol/L (10-20); BUN (Urea Nitrogen) 25 mg/dL (8.4-25.7); Bilirubin, Total 0.4 mg/dL (0.2-1.2); CK (CPK) 63 U/L (30-200); Calc. Creatinine Clearance 0 mL/min (70-130); Calcium 9.7 mg/dL (7.8-10.44); Carbon Dioxide 22 mmol/L (23-31); Chloride 109 mmol/L (98-107); Estimated GFR-MDRD 67; Globulin 3.7 g/dL (2.4-3.5); Glucose 215 mg/dL (80-115); Potassium 4.9 mmol/L (3.5-5.1); Protein, Total 7.5 g/dL (5.8-8.1); Sodium 141 mmol/L (136-145)
--- NOTE | 2018-08-01 14:40 | RAD ---
PORTABLE AP CHEST X-RAY: 08/01/2018 HISTORY: Productive cough for 10 days. Mildly diminished oxygen saturation. COMPARISON: 10/07/2017 FINDINGS: There are interstitial and patchy opacities within the right mid lung zone, concerning for pneumonia. There is also mild increased density at the left lung base, which may represent superimposition of structures, limited due to overlying cardiac silhouette, but a developing infiltrate in the left lung base cannot be entirely excluded. The cardiac silhouette is magnified by projection. The pulmonary vasculature is within normal limits . The osseous structures appear intact. IMPRESSION: 1. Pneumonia, right mid lung zone. Followup to complete resolution is recommended. 2. Question of developing infiltrate at the left lung base. This may be related to superimposition of structures as opposed to parenchymal changes at the left lung base; however, this can be re-evalua tameka on follow-up examination. POS: [facility]
[2018-08-01] MEDS ORDERED: Azithromycin 500 MG VIAL ONE (14:49)
[2018-08-01] MEDS ORDERED: cefTRIAXone\\ROCEPHIN 2 GM in Sodium Chloride 0.9% 100 ML IVPB SCH (15:00)
[2018-08-01] MEDS ORDERED: Ondansetron PF 4 MG/2 ML Vial IVP PRN (17:25)
[2018-08-01] MEDS ORDERED: Ondansetron ODT 4 MG TAB SL PRN (17:25)
[2018-08-01 17:36] VITALS: BMI 37.9
[2018-08-01] MEDS ORDERED: Insulin Regular 300 UNITS/3 ML VIAL SC PRN (19:10)
[2018-08-01] MEDS ORDERED: Dextrose 50% Abboject 50 ML SYRINGE IVP PRN (19:10)
[2018-08-01] MEDS ORDERED: Dextrose 5% in Water 1,000 ML IV PRN (19:10)
[2018-08-01] MEDS: Sodium Chloride 0.9% 1,000 ML IV SCH (19:59)
[2018-08-01] MEDS: guaiFENesin ER 600 MG TAB PO SCH (20:00)
[2018-08-01] MEDS: Lisinopril 20 MG TAB PO SCH (20:00)
[2018-08-01] MEDS: Gabapentin 300 MG CAP PO SCH (20:00)
[2018-08-01] MEDS: Rosuvastatin 20 MG TAB PO SCH (20:00)
[2018-08-01] MEDS: Fenofibrate Nanocrystallized 145 MG TAB PO SCH (20:01)
[2018-08-01] MEDS: Acetaminophen 325 MG TAB PO PRN (20:03)
[2018-08-01] MEDS: Insulin Glargine 30 UNITS in Pre-Filled Syringe 1 EACH SC SCH (21:14)
--- NOTE | 2018-08-02 00:53 | HP ---
CHIEF COMPLAINT: Cough, congestion, and shortness of breath. HISTORY OF PRESENT ILLNESS: Mr. Benedict is a 68-year-old male with past medical history of diabetes, hypertension, and coronary artery disease. He came because of cough, congestion, and shortness of breath started a few days ago cough is productive with yellow sputum. The patient initially came to the office where he was evaluated and found to be hypoxic with room air sats of 95%. He was referred to the emergency room for further evaluation because of hypoxia. The patient also says he vomited once yesterday. He has been having lot of congestion with rhinorrhea. In the ER, the patient was evaluated and found to be hypoxic. Chest x-ray showed right middle lobe pneumonia. He received a dose of Rocephin and Zithromax and also IV fluid bolus of 1 L, given and DuoNebs given and put on oxygen and admitted for further evaluation and management. The patient did not have fever and did not have any chest pain. PAST MEDICAL HISTORY: 1. Hypertension. 2. Gastroesophageal reflux disease. 3. Hyperlipidemia. 4. Diabetes mellitus. 5. Chronic neck pain. 6. History of CO and coronary artery disease. PAST SURGICAL HISTORY: Back surgery, status post stent placement. ALLERGIES: CODEINE AND PHOSPHATE. CURRENT MEDICATIONS: The patient is on, 1. Metformin 500 mg b.i.d. 2. Imdur 30 mg daily. 3. Crestor 20 mg daily. 4. Metoprolol 50 mg daily. 5. Lisinopril 20 mg b.i.d. 6. Fenofibrate 145 mg. 7. Gabapentin 100 mg t.i.d. 8. [place] p.r.n. 9. Protonix 40 mg daily. 10. Glimepiride 4 mg daily. 11. Flomax 0.4 mg a day. FAMILY HISTORY: Nothing contributory. SOCIAL HISTORY: He lives with family. No history of smoking. No history of alcohol. REVIEW OF SYSTEMS: CARDIOVASCULAR: Has no chest pain. Has shortness of breath. RESPIRATORY: Has cough and congestion. No fever. GASTROINTESTINAL: Has vomited once. No nausea symptoms. NEUROLOGIC: No headache. No dizziness. PHYSICAL EXAMINATION: GENERAL: The patient is alert, awake, and oriented x3. VITAL SIGNS: Temperature 98, pulse 94, respirations 20, blood pressure 160/80. HEENT: Head is normocephalic and atraumatic. Pupils are equal and reactive. Nasopharynx is pale and dry. There is nasal congestion present. NECK: Supple. No JVD. LUNGS: Breath sounds diminished bilaterally. Percussion dull bilaterally. Crackles on the right side. HEART: S1 and S2 regular. ABDOMEN: Soft. No tenderness. No distension. Normal bowel sounds present. RECTAL: Deferred. CENTRAL NERVOUS SYSTEM: No focal deficit. LABORATORY DATA: CBC shows a WBC of 7.7, hemoglobin 14, hematocrit 43, platelets 195. Metabolic panel; sodium 140, potassium 4.9, chloride 109, CO2 of 22, urea nitrogen 25, creatinine 1, glucose 215. Troponin I is less than 0.010. Influenza screen was negative. EKG shows normal sinus rhythm, no acute ST-T changes seen. Chest x-ray shows pneumonia in the right midlung zone. ASSESSMENT: 1. Pneumonia, right middle lobe. 2. Allergic rhinitis. 3. Hypoxia secondary to pneumonia. 4. Hypertension. 5. Diabetes mellitus. 6. Coronary artery disease. 7. Status post back surgery. PLAN: 1. Vital signs q.4. 2. Activity: As tolerated. 3. Allergies: Codeine. 4. Hep-Lock. 5. Diet: ADA. 6. Rocephin 2 g IV piggyback daily. 7. Zithromax 500 mg IV piggyback daily. 8. DuoNebs q.i.d. p.r.n. 9. Continue home medications. 10. Accu-Chek a.c. and at bedtime. Sliding scale mild with regular insulin. 11. Oxygen by nasal cannula at 2 L. Job ID: [id number] [facility]
[2018-08-02] MEDS: Sodium Chloride 0.9% 1,000 ML IV SCH (03:23)
[2018-08-02] MEDS: Acetaminophen 325 MG TAB PO PRN (04:31)
[2018-08-02] MEDS: Isosorbide Dinitrate 20 MG TAB PO SCH (07:39)
[2018-08-02] MEDS: Lisinopril 20 MG TAB PO SCH ×2 (07:39→20:08)
[2018-08-02] MEDS: Loratadine 10 MG TAB PO SCH (07:40)
[2018-08-02] MEDS: Gabapentin 300 MG CAP PO SCH ×3 (07:40→20:08)
[2018-08-02] MEDS: guaiFENesin ER 600 MG TAB PO SCH ×2 (07:40→20:08)
[2018-08-02] MEDS: Guaifenesin DM 100-10/5 ML UDCUP PO PRN ×2 (07:41→19:14)
[2018-08-02] MEDS: cefTRIAXone\\ROCEPHIN 2 GM in Sodium Chloride 0.9% 100 ML IVPB SCH (07:41)
[2018-08-02] MEDS: Aspirin 325 MG TAB PO SCH (07:41)
[2018-08-02] MEDS ORDERED: Fluticasone Propionate Nasal Spray 16 gm Bottle NASAL SCH (09:00)
[2018-08-02] MEDS ORDERED: Prevnar 13-Val Conj/PF 0.5 ML SYRINGE IM ONE (09:00)
[2018-08-02] MEDS: Ubidecarenone 50 MG CAP PO SCH (14:09)
[2018-08-02] MEDS ORDERED: Azithromycin 500 MG in Sodium Chloride 0.9% 250 ML 250 ML IVPB SCH (15:00)
--- NOTE | 2018-08-02 15:15 | PQF ---
CLINICAL DOCUMENTATION IMPROVEMENT CLARIFICATION FORM: ICD-10 Updated PLEASE DO AN ADDENDUM TO THE PROGRESS NOTE WITH ANY DOCUMENTATION UPDATES OR ADDITIONS AND CARRY THROUGH TO DC SUMMARY. THANK YOU. DATE: 08/02/18 ATTN: DR. CHAPARRO Please exercise your independent, professional judgment in responding to the clarification form. Clinical indicators are provided on the bottom of this form for your review Please check appropriate box(s) to clarify if the following diagnosis has been ruled in or ruled out: "SEPSIS" [ ] Ruled in diagnosis [ ] Continue to treat [ ] Resolved [ y] Ruled out diagnosis [ ] Cannot rule out diagnosis [ ] Other diagnosis [ ] Unable to determine In addition, please specify: Present on Admission (POA): [ ] Yes [ ] No [ ] Unable to determine For continuity of documentation, please document condition throughout progress notes and discharge summary. Thank You. CLINICAL INDICATORS - SIGNS / SYMPTOMS / LABS ER NOTE: "SEPSIS" RR 22-24 PULSE 112 RISKS: PNEUMONIA H/O DIABETES TREATMENT: IV FLUIDS (ER) IV ROCEPHIN (ER-PRESENT) IV AZITHROMYCIN (ER-PRESENT) BLOOD CULTURES (This form is maintained as a part of the permanent medical record) 2014 [employer] All Rights Reserved [email or web address] Office: [phone] [facility]
[2018-08-02] MEDS: Fenofibrate Nanocrystallized 145 MG TAB PO SCH (20:08)
[2018-08-02] MEDS: Rosuvastatin 20 MG TAB PO SCH (20:08)
[2018-08-02] MEDS: Insulin Glargine 30 UNITS in Pre-Filled Syringe 1 EACH SC SCH (22:07)
[2018-08-03] MEDS: Guaifenesin DM 100-10/5 ML UDCUP PO PRN ×2 (04:34→08:27)
[2018-08-03] MEDS: cefTRIAXone\\ROCEPHIN 2 GM in Sodium Chloride 0.9% 100 ML IVPB SCH (08:28)
[2018-08-03] MEDS: Acetaminophen 325 MG TAB PO PRN (08:28)
[2018-08-03] MEDS: Ubidecarenone 50 MG CAP PO SCH (08:28)
[2018-08-03] MEDS: Isosorbide Dinitrate 20 MG TAB PO SCH (08:29)
[2018-08-03] MEDS: guaiFENesin ER 600 MG TAB PO SCH (08:30)
[2018-08-03] MEDS: Lisinopril 20 MG TAB PO SCH (08:30)
[2018-08-03] MEDS: Aspirin 325 MG TAB PO SCH (08:31)
[2018-08-03] MEDS: Gabapentin 300 MG CAP PO SCH ×2 (08:31→13:02)
[2018-08-03] MEDS: Loratadine 10 MG TAB PO SCH (08:31)
[2018-08-03 11:28] VITALS: BP 127/79; TEMP 98.4
--- NOTE | 2018-08-04 18:29 | EKG ---
Test Reason : ER Blood Pressure : / mmHG Vent. Rate : 092 BPM Atrial Rate : 092 BPM P-R Int : 174 ms QRS Dur : 096 ms QT Int : 348 ms P-R-T Axes : 052 060 046 degrees QTc Int : 430 ms Normal sinus rhythm Normal ECG Confirmed by SRUTHI DOMINGUEZ DO ([id number]), commissioning editor MITRA WERNER ([id number]) on 08/04/2018 6:29:19 PM Referred By: Confirmed By:SRUTHI DOMINGUEZ DO
== END 2018-08-03 15:09 | disposition home or self-care (01) | DRG 195 ==
LOC: ERS 13:29 → T4-B 16:54
PROVIDERS: ADMIT Internal Medicine; ATTEND Internal Medicine
DX: J18.1 Lobar pneumonia, unspecified organism (principal); E11.9 Type 2 diabetes mellitus without complications; I10 Essential (primary) hypertension; I25.10 Atherosclerotic heart disease of native coronary artery without angina pectoris; K21.9 Gastro-esophageal reflux disease without esophagitis; E78.5 Hyperlipidemia, unspecified; J30.9 Allergic rhinitis, unspecified; G89.29 Other chronic pain; M54.2 Cervicalgia; I25.2 Old myocardial infarction; Z98.890 Other specified postprocedural states; Z88.5 Allergy status to narcotic agent; Z88.8 Allergy status to other drugs, medicaments and biological substances; Z79.84 Long term (current) use of oral hypoglycemic drugs; Z79.899 Other long term (current) drug therapy; Z98.61 Coronary angioplasty status
CPT/HCPCS: 36415; 36416; 71045; 80053; 82550; 83605; 83880; 84484; 85025; 87040; 87804; 90471; 90662; 90670; 93005; 94640; 96361; 96365; 96367; G0008; G0009; J0456; J0696; J7050; J7620

== ENCOUNTER 2018-09-26 09:17 | Outpatient (CLI) | payer OTHER, MEDICARE ==
--- NOTE | 2018-09-26 11:23 | RAD ---
LUMBAR SPINE 3 VIEWS: Date: 09/26/18 COMPARISON: 05/30/17. HISTORY: Intervertebral disc disorder, radiculopathy. FINDINGS: Three lateral examinations are provided, including neutral, flexion, and extension positioning. Body habitus limits detailed assessment on the extension view. There is disc space narrowing and mild degenerative end plate change at T12-L1. At L1-2, there is dis c space narrowing with anterior and posterior osteophyte formation. Similar findings are noted at L2- 3, L3-4, and L4-5. There is multilevel lower lumbar spine facet hypertrophy, most prominent at L4-5 a nd L5-S1. The neutral lateral imaging, flexion lateral imaging, and extension lateral imaging demonst rates no anterolisthesis or retrolisthesis. No acute osseous abnormality is seen. IMPRESSION: Multilevel degenerative change within the lumbar spine as described above. Findings are similar when compared to the prior study performed 05/30/17. POS: [facility]
== END 2018-09-26 09:18 | disposition home or self-care (01) ==
LOC: RAD 09:17
PROVIDERS: ATTEND Specialist
DX: M51.16 Intervertebral disc disorders with radiculopathy, lumbar region (principal); M47.816 Spondylosis without myelopathy or radiculopathy, lumbar region
CPT/HCPCS: 72100

== ENCOUNTER 2018-10-16 08:26 | Outpatient (CLI) | payer MEDICARE ==
[2018-10-16] MEDS ORDERED: Gadobenate Dimeglumine 529 MG/1 ML (20ML VIAL) ONE (11:43)
--- NOTE | 2018-10-16 13:18 | MRI ---
MRI LUMBAR SPINE WITH AND WITHOUT CONTRAST: DATE: 10/16/18 HISTORY: 68-year-old male with M51.16 intervertebral disc disorder with radiculopathy. COMPARISON: 06/16/17. TECHNIQUE: Multiple sequences obtained in axial and sagittal planes, pre and post IV injection of gadolinium-bas ed contrast agent: 20 mL MultiHance. FINDINGS: There are five lumbar-type vertebrae. Vertebral body heights are maintained. Moderate disc space narr owing at all levels from L1-2 through L5-S1, and diffuse disc bulges throughout all of those levels. No major spondylolisthesis. No scoliosis. T12-L1: Essentially normal. L1-2: Conus medullaris terminates at mid L2 level. Diffuse disc bulge plus superimposed left paracen tral focal disc protrusion. Mild central spinal canal stenosis. Posterior epidural fat pad. Mild to m oderate thecal sac stenosis. Mild bilateral neural foraminal stenosis. No interval change. L2-3: Mild disc bulge. No high grade central spinal canal stenosis. Posterior epidural fat pad. Mild to moderate thecal sac stenosis. No high grade neural foraminal stenosis. No interval change. L3-4: There has been midline laminectomy resulting in resolution of the previously demonstrated high grade thecal sac stenosis. Currently mild central spinal canal stenosis and lateral recess stenosis bilaterally. Moderate bilateral neural foraminal stenosis is unchanged. Prominent diffuse disc bulge is unchanged. Enhancing postsurgical scar tissue or granulation tissue throughout the posterior and l ateral aspects of the thecal sac, as expected. L4-5: Prominent diffuse disc bulge remains. Interval midline laminectomy. Rim of enhancing postsurgi benjamin granulation or scar tissue in the posterior and lateral epidural space, and lateral recesses bila terally. There is rim enhancement of a tiny new focal approximately 0.5 cm nodule at the lateral aspe ct of the right epidural space, indenting the lateral aspect of the thecal sac, which could be a tiny disc fragment, bone fragment, ligamentum flavum fragment, or synovial cyst. In addition to postsurgi benjamin enhancing tissue surrounding the bilateral L5 nerve roots just after they exit the thecal sac, th is rim enhancing tiny mass also abuts the posterior surface of the right L5 nerve root. The previousl y demonstrated severe central spinal canal stenosis has improved. Currently, there is moderate to sev ere thecal sac stenosis. The previously demonstrated high grade bilateral neural foraminal stenosis i s worse now, severe, with effacement of fat signal. L5-S1: No central stenosis. Mild right neural foraminal stenosis. Minimal left neural foraminal sten osis. Slight degenerative retrolisthesis of L5 on S1. In addition to diffuse disc bulge, there is a c entral disc extrusion with inferior migration of disc material a distance of approximately 0.8 cm. It abuts the bilateral S1 nerve roots, especially on the right. No high grade central stenosis. No inte rval change. There are mild and moderate degenerative facet changes at various levels, especially at the levels of laminectomy. IMPRESSION: 1. Status post midline laminectomies at L3-4 and L4-5, resulting in improvement of the caliber of th e spinal canal, especially at L4-5. 2. Interval worsening of now severe bilateral neural foraminal stenosis at L4-5. 3. Postsurgical enhancing granulation or scar tissue in the epidural space at L4-5. Some of this cir cumferentially surrounds the bilateral L5 nerve roots immediately after they exit the thecal sac. 4. Tiny fragment of material in the right lateral epidural space also abuts the posterior surface of the right L5 nerve root at that level. 5. No interval change in the inferiorly migrated central extruded disc herniation at L5-S1, which mi ldly impinges on bilateral S1 nerve roots, especially the right. 6. Lumbar spondylosis consisting of multilevel moderate degenerative disc disease with diffuse disc bulges at all levels from L1-2 through L5-S1. ANNETTA Murrell POS: [facility]
== END 2018-10-16 08:27 | disposition home or self-care (01) ==
LOC: BICMRI 08:26
PROVIDERS: ATTEND Specialist
DX: M51.16 Intervertebral disc disorders with radiculopathy, lumbar region (principal); M51.17 Intervertebral disc disorders with radiculopathy, lumbosacral region; M48.061 Spinal stenosis, lumbar region without neurogenic claudication; M47.26 Other spondylosis with radiculopathy, lumbar region; M47.27 Other spondylosis with radiculopathy, lumbosacral region; Z98.890 Other specified postprocedural states
CPT/HCPCS: 72158; 82565; A9577

== ENCOUNTER 2020-01-07 12:34 | Emergency (ER) | payer MEDICARE | END 2020-01-07 13:42 | disposition home or self-care (01) | LOC: ERS 12:34 | DX: R09.02 Hypoxemia (principal); I25.2 Old myocardial infarction; K21.9 Gastro-esophageal reflux disease without esophagitis; E11.9 Type 2 diabetes mellitus without complications; I10 Essential (primary) hypertension; E78.5 Hyperlipidemia, unspecified; E78.00 Pure hypercholesterolemia, unspecified; Z79.899 Other long term (current) drug therapy; Z79.84 Long term (current) use of oral hypoglycemic drugs | CPT/HCPCS: 99283 ==

== ENCOUNTER 2020-01-24 07:17 | Outpatient (CLI) | payer OTHER ==
--- NOTE | 2020-01-24 08:54 | MRI ---
MRI Lower Ext Jt Rt WO Con History: Contusion of right hip. Hip pain after a fall Comparison: Hip radiograph December 2019 Findings: Bones: No fracture. No malalignment. No marrow infiltrative process. Loss of normal sphericity of the bilateral femoral head/neck junctions. Subcortical cysts of the righ t anterior femoral head. Moderate degenerative changes of the pubic symphysis. Moderate right and small left acetabular osteophyte formation. Labrum: Motion artifact limits evaluation of the right labrum although there is very likely chondral labral junction tearing of the anterior and superior labrum. Muscles: No muscle atrophy. The hip abductors and adductors are intact. Tendons: Moderate tendinosis of the right common hamstring tendon with low-grade undersurface delamin ation. The iliopsoas tendon is intact. Rectus femoris tendon is intact. Soft tissues: Small right greater trochanteric bursa effusion. No soft tissue contusion. Intrapelvic soft tissues: Unremarkable Impression: 1. Mild loss of normal sphericity of both femoral head/neck junctions, CAM type deformities, with cho ndral labral junction tear of the right anterior and superior labrum. 2. Moderate chondral fraying and fissuring of the anterior femoral head with subcortical cyst formati on, small. 3. Small right greater trochanteric bursa effusion. 4. No significant muscle atrophy. 5. No acute fracture or malalignment. 6. Relatively advanced degenerative disc space disease lower lumbar spine with disc osteophyte comple xes.
== END 2020-01-24 07:18 | disposition home or self-care (01) ==
LOC: BICMRI 07:17
PROVIDERS: ATTEND Family Medicine
DX: S70.01XD Contusion of right hip, subsequent encounter (principal); M25.78 Osteophyte, vertebrae; M51.36 Other intervertebral disc degeneration, lumbar region; M70.61 Trochanteric bursitis, right hip; M85.661 Other cyst of bone, right lower leg; M21.851 Other specified acquired deformities of right thigh; S73.101A Unspecified sprain of right hip, initial encounter

== ENCOUNTER 2020-06-10 10:10 | Emergency (ER) | payer OTHER, MEDICARE ==
[2020-06-10] MEDS ORDERED: Ibuprofen 200 MG TAB ONE (12:01)
[2020-06-10] MEDS ORDERED: HYDROcodone/Acetaminophen 5/325 mg Tablet ONE (12:01)
== END 2020-06-10 12:05 | disposition home or self-care (01) ==
LOC: ERS 10:10
DX: M25.551 Pain in right hip (principal); I25.2 Old myocardial infarction; K21.9 Gastro-esophageal reflux disease without esophagitis; E11.9 Type 2 diabetes mellitus without complications; E78.5 Hyperlipidemia, unspecified; E78.00 Pure hypercholesterolemia, unspecified; I10 Essential (primary) hypertension; Z79.899 Other long term (current) drug therapy
CPT/HCPCS: 99283

== ENCOUNTER 2020-09-30 10:30 | Outpatient (CLI) | payer MEDICARE ==
--- NOTE | 2020-09-30 11:59 | RAD ---
EXAM: Chest 2 views: HISTORY: Dyspnea COMPARISON: 08/01/2018 FINDINGS: There is a normal-sized cardiomediastinal silhouette. There is no evidence of consolidation, mass, or pleural effusion. Degenerative changes are seen in the spine. IMPRESSION: No evidence of acute cardiopulmonary disease
== END 2020-09-30 10:31 | disposition home or self-care (01) ==
LOC: BICRAD 10:30
PROVIDERS: ATTEND Internal Medicine Pulmonary Disease
DX: R06.00 Dyspnea, unspecified (principal)
CPT/HCPCS: 71046

== ENCOUNTER 2020-11-03 19:00 | Outpatient (CLI) | payer MEDICARE | END 2020-11-03 19:01 | disposition home or self-care (01) | LOC: SLEEPLAB 19:00 | PROVIDERS: ATTEND Internal Medicine Pulmonary Disease | DX: G47.33 Obstructive sleep apnea (adult) (pediatric) (principal); R53.83 Other fatigue; R06.83 Snoring; J44.9 Chronic obstructive pulmonary disease, unspecified; I10 Essential (primary) hypertension; E66.9 Obesity, unspecified; G47.10 Hypersomnia, unspecified; I25.10 Atherosclerotic heart disease of native coronary artery without angina pectoris; G47.00 Insomnia, unspecified; R09.02 Hypoxemia; Z68.38 Body mass index [BMI] 38.0-38.9, adult | CPT/HCPCS: 95811 ==

== ENCOUNTER 2021-09-09 08:16 | Observation (INO) | payer MEDICARE ==
[2021-09-09] MEDS ORDERED: Aspirin Chewable 81 MG TAB ONE (08:54)
[2021-09-09] MEDS ORDERED: Labetalol HCl 100 MG/20 ML VIAL ONE (08:54)
[2021-09-09 09:02] LABS: #Eosinphils 0.1 thou/uL (0.0-0.7); #Lymphocytes 1.4 thou/uL (1.20-3.40); #Monocytes 0.4 thou/uL (0.11-0.59); #Neutrophils 2.9 thou/uL (1.40-6.50); %Basophils 0.3 % (0.0-1.0); %Eosinophils 1.4 % (0.0-10.0); %Lymphocytes 29.2 % (21.0-51.0); %Monocytes 8.9 % (0.0-10.0); %Neutrophils 60.2 % (42.0-75.0); Hemoglobin 14.4 g/dL (14.0-18.0); Mean Corpuscular HGB CONC 32.4 g/dL (32.0-36.0); Mean Corpuscular Hemoglobin 28.2 pg (27.0-31.0); Mean Platelet Volume 8.7 fL (7.4-10.4); Platelet Count 131 thou/uL (130-400); RBC Distribution Width 13.6 % (11.5-14.5); Red Blood Cell (RBC) Count 5.09 mill/uL (4.70-6.10); White Blood Cell (WBC) Count 4.9 thou/uL (4.8-10.8)
[2021-09-09 09:35] LABS: ALT (SGPT) 18 U/L (8-55); AST (SGOT) 18 U/L (5-34); Albumin 4.1 g/dL (3.4-4.8); Alkaline Phosphatase 76 U/L (40-110); Anion Gap 15 mmol/L (10-20); BUN (Urea Nitrogen) 13 mg/dL (8.4-25.7); Bilirubin, Total 0.9 mg/dL (0.2-1.2); Calc. Creatinine Clearance 0 mL/min (70-130); Carbon Dioxide 23 mmol/L (23-31); Chloride 107 mmol/L (98-107); Globulin 2.6 g/dL (2.4-3.5); Glucose 108 mg/dL (80-115); Protein, Total 6.7 g/dL (5.8-8.1); Sodium 141 mmol/L (136-145)
[2021-09-09] MEDS ORDERED: Iopamidol 370 76% 50 ML VIAL FS ONE (11:41)
[2021-09-09 12:20] LABS: Troponin I Less than 0.010 ng/mL (< 0.028)
[2021-09-09] MEDS ORDERED: Dextrose 5% in Water 1,000 ML IV PRN (13:10)
[2021-09-09] MEDS ORDERED: HumaLOG 300 UNITS/3 ML VIAL SC PRN ×2 (13:10)
[2021-09-09] MEDS ORDERED: Ondansetron ODT 4 MG TAB PO PRN (13:10)
[2021-09-09] MEDS ORDERED: Acetaminophen 325 MG TAB PO PRN (13:10)
[2021-09-09] MEDS ORDERED: Dextrose 50% Abboject 50 ML SYRINGE SLOW IVP PRN (13:10)
[2021-09-09] MEDS ORDERED: Nitroglycerin 0.4 MG TAB (25 Tab Bottle) SL PRN (13:10)
[2021-09-09 14:38] LABS: Hemoglobin A1c 6.4 % (4.0-6.0)
[2021-09-09 15:07] LABS: Magnesium 1.5 mg/dL (1.6-2.6)
[2021-09-09 15:24] LABS: Troponin I Less than 0.010 ng/mL (< 0.028)
[2021-09-09] MEDS ORDERED: Electrolyte Replacement Protocol 1 EACH FS PRN (15:45)
[2021-09-09] MEDS ORDERED: Electrolyte Replacement Protocol FS PRN (17:00)
[2021-09-09] MEDS ORDERED: Magnesium 2 GM/50 ML 2 GM in Premix Bag 1 BAG IVPB SCH (17:00)
[2021-09-09 17:02] VITALS: BMI 37.1
[2021-09-09 18:49] LABS: SARS-CoV-2 NAA Rapid Test Not Detected (NotDetected)
[2021-09-09] MEDS: Lisinopril 20 MG TAB PO SCH (20:49)
[2021-09-09] MEDS: hydrALAZINE 25 MG TAB PO SCH (20:50)
[2021-09-09] MEDS ORDERED: Rosuvastatin 20 MG TAB PO SCH (21:00)
[2021-09-09] MEDS ORDERED: Tamsulosin HCl 0.4 MG CAP PO SCH (21:00)
[2021-09-10 05:18] LABS: Anion Gap 12 mmol/L (10-20); BUN (Urea Nitrogen) 12 mg/dL (8.4-25.7); Calc. Creatinine Clearance 128 mL/min (70-130); Calcium 8.8 mg/dL (7.8-10.44); Carbon Dioxide 26 mmol/L (23-31); Cardiac Risk 4.6 (Less than 4.5); Chloride 107 mmol/L (98-107); Cholesterol 137 mg/dl (< 200 Desired); Glucose 125 mg/dL (80-115); HDL Cholesterol 30 mg/dL (>60 Neg Risk); LDL Cholesterol, Calculated 80 mg/dL; Magnesium 1.8 mg/dL (1.6-2.6); Potassium 3.7 mmol/L (3.5-5.1); Sodium 141 mmol/L (136-145); Triglycerides 134 mg/dL (Less than 150)
[2021-09-10 05:22] LABS: #Eosinphils 0.1 thou/uL (0.0-0.7); #Lymphocytes 1.3 thou/uL (1.20-3.40); #Monocytes 0.5 thou/uL (0.11-0.59); #Neutrophils 2.6 thou/uL (1.40-6.50); %Basophils 0.7 % (0.0-1.0); %Eosinophils 2.2 % (0.0-10.0); %Lymphocytes 28.4 % (21.0-51.0); %Monocytes 10.4 % (0.0-10.0); %Neutrophils 58.3 % (42.0-75.0); Hemoglobin 14.1 g/dL (14.0-18.0); Mean Corpuscular HGB CONC 32.3 g/dL (32.0-36.0); Mean Corpuscular Hemoglobin 28.3 pg (27.0-31.0); Mean Corpuscular Volume 87.6 fL (78.0-98.0); Mean Platelet Volume 8.5 fL (7.4-10.4); Platelet Count 115 thou/uL (130-400); RBC Distribution Width 13.6 % (11.5-14.5); Red Blood Cell (RBC) Count 4.97 mill/uL (4.70-6.10); White Blood Cell (WBC) Count 4.5 thou/uL (4.8-10.8)
[2021-09-10] MEDS ORDERED: Magnesium 2 GM/50 ML 2 GM in Premix Bag 1 BAG IVPB SCH (07:00)
[2021-09-10] MEDS ORDERED: Tamsulosin HCl 0.4 MG CAP PO SCH (09:00)
[2021-09-10] MEDS ORDERED: Aspirin 325 MG TAB PO SCH (09:00)
[2021-09-10] MEDS ORDERED: Isosorbide Dinitrate 20 MG TAB PO SCH (09:00)
[2021-09-10] MEDS: hydrALAZINE 25 MG TAB PO SCH ×2 (10:32→15:52)
[2021-09-10] MEDS: Lisinopril 20 MG TAB PO SCH (10:33)
[2021-09-10 16:05] VITALS: BP 136/67; TEMP 98.5
== END 2021-09-10 18:13 | disposition home or self-care (01) ==
LOC: ERS 08:16 → ERHOLD 11:11 → 2NO 16:49
PROVIDERS: ADMIT Internal Medicine; ATTEND Hospitalist
DX: R07.89 Other chest pain (principal); J96.01 Acute respiratory failure with hypoxia; I16.0 Hypertensive urgency; I11.9 Hypertensive heart disease without heart failure; E78.5 Hyperlipidemia, unspecified; E11.9 Type 2 diabetes mellitus without complications; K21.9 Gastro-esophageal reflux disease without esophagitis; I25.2 Old myocardial infarction; I08.1 Rheumatic disorders of both mitral and tricuspid valves; Z79.4 Long term (current) use of insulin; Z79.82 Long term (current) use of aspirin; Z79.84 Long term (current) use of oral hypoglycemic drugs; Z79.899 Other long term (current) drug therapy; Z95.5 Presence of coronary angioplasty implant and graft; Z20.822 Contact with and (suspected) exposure to COVID-19
CPT/HCPCS: 71045; 71275; 80048; 80061; 82962 ×2; 83036; 83735 ×2; 83880; 84484 ×2; 85025; 87633; 93005; 93306; 96374; 96376; 99285; U0002; 36415; 36416; 80053; 84443; 96375; G0378; J3475; Q9967

== ENCOUNTER 2022-11-10 14:20 | Emergency (ER) | payer MEDICARE ==
[2022-11-10 14:54] LABS: #Eosinphils 0.1 thou/uL (0.0-0.7); #Lymphocytes 1.5 thou/uL (1.20-3.40); #Monocytes 0.4 thou/uL (0.11-0.59); #Neutrophils 3.1 thou/uL (1.40-6.50); %Basophils 0.2 % (0.0-1.0); %Eosinophils 1.7 % (0.0-10.0); %Lymphocytes 30.2 % (21.0-51.0); %Monocytes 7.4 % (0.0-10.0); %Neutrophils 60.5 % (42.0-75.0); Hemoglobin 14.7 g/dL (14.0-18.0); Mean Corpuscular Hemoglobin 30.1 pg (27.0-31.0); Mean Corpuscular Volume 86.1 fl (78.0-98.0); Mean Platelet Volume 9.1 fL (7.4-10.4); Platelet Count 124 10x3/uL (130-400); RBC Distribution Width 13.6 % (11.5-14.5); Red Blood Cell (RBC) Count 4.89 mill/uL (4.70-6.10); White Blood Cell (WBC) Count 5.1 10x3/uL (4.8-10.8)
[2022-11-10 15:55] LABS: ALT (SGPT) 18 U/L (8-55); AST (SGOT) 27 U/L (5-34); Albumin 4.2 g/dL (3.4-4.8); Alkaline Phosphatase 60 U/L (40-110); Anion Gap 17 mmol/L (10-20); BUN (Urea Nitrogen) 23 mg/dL (8.4-25.7); Bilirubin, Total 0.8 mg/dL (0.2-1.2); Calc. Creatinine Clearance 0 mL/min (70-130); Calcium 9.2 mg/dL (7.8-10.44); Carbon Dioxide 22 mmol/L (23-31); Chloride 104 mmol/L (98-107); Estimated GFR 53; Glucose 221 mg/dL (83-110); Lipase 63 U/L (8-78); Potassium 4.2 mmol/L (3.5-5.1); Protein, Total 7.2 g/dL (5.8-8.1); Sodium 139 mmol/L (136-145)
== END 2022-11-10 16:49 | disposition home or self-care (01) ==
LOC: ERS 14:20
DX: M94.0 Chondrocostal junction syndrome [Tietze] (principal); E78.00 Pure hypercholesterolemia, unspecified; I10 Essential (primary) hypertension; E11.9 Type 2 diabetes mellitus without complications; K21.9 Gastro-esophageal reflux disease without esophagitis; Z79.82 Long term (current) use of aspirin; Z79.84 Long term (current) use of oral hypoglycemic drugs; Z79.899 Other long term (current) drug therapy
CPT/HCPCS: 71045; 80053; 83690; 84484; 85025; 93005

== ENCOUNTER 2023-10-12 10:20 | Observation (INO) | payer MEDICARE ==
[2023-10-12 10:46] LABS: #Eosinphils 0.1 thou/uL (0.0-0.7); #Monocytes 0.5 thou/uL (0.11-0.59); %Basophils 0.7 % (0.0-1.0); %Eosinophils 1.2 % (0.0-10.0); %Lymphocytes 23.7 % (21.0-51.0); %Monocytes 7.6 % (0.0-10.0); %Neutrophils 66.5 % (42.0-75.0); Hematocrit 43.2 % (42.0-52.0); Hemoglobin 14.1 g/dL (14.0-18.0); Mean Corpuscular HGB CONC 32.6 g/dL (32.0-36.0); Mean Corpuscular Hemoglobin 28.1 pg (27.0-31.0); Mean Corpuscular Volume 86.2 fl (78.0-98.0); Mean Platelet Volume 11.3 fL (7.4-10.4); Platelet Count 131 10x3/uL (130-400); RBC Distribution Width 14.5 % (11.5-14.5); Red Blood Cell (RBC) Count 5.01 mill/uL (4.70-6.10)
[2023-10-12 11:02] LABS: PTT 28.2 sec (22.9-36.1)
[2023-10-12 11:03] LABS: ALT (SGPT) 17 U/L (8-55); AST (SGOT) 20 U/L (5-34); Albumin 4.5 g/dL (3.4-4.8); Alkaline Phosphatase 60 U/L (40-110); Anion Gap 15 mmol/L (10-20); BUN (Urea Nitrogen) 30 mg/dL (8.4-25.7); Bilirubin, Total 0.9 mg/dL (0.2-1.2); Calc. Creatinine Clearance 0 mL/min (70-130); Calcium 9.8 mg/dL (7.8-10.44); Carbon Dioxide 23 mmol/L (23-31); Chloride 108 mmol/L (98-107); Estimated GFR 58; Globulin 2.6 g/dL (2.4-3.5); Glucose 175 mg/dL (83-110); Lipase 57 U/L (8-78); Potassium 4.4 mmol/L (3.5-5.1); Protein, Total 7.1 g/dL (5.8-8.1); Sodium 142 mmol/L (136-145)
[2023-10-12 11:08] LABS: Troponin I Less than 0.010 ng/mL (< 0.028)
[2023-10-12] MEDS ORDERED: Acetaminophen 325 MG TAB PO PRN (11:59)
[2023-10-12] MEDS ORDERED: Ondansetron PF 4 MG/2 ML Vial IVP PRN (11:59)
[2023-10-12] MEDS ORDERED: Glucagon 1 MG/ML KIT IM PRN (12:03)
[2023-10-12] MEDS ORDERED: Dextrose 5% in Water 1,000 ML IV PRN (12:03)
[2023-10-12] MEDS ORDERED: Dextrose 50% Abboject 50 ML SYRINGE SLOW IVP PRN (12:03)
[2023-10-12] MEDS ORDERED: HumaLOG 300 UNITS/3 ML VIAL SC PRN (12:03)
[2023-10-12 13:43] VITALS: BMI 34.4
[2023-10-12 13:57] LABS: Troponin I Less than 0.010 ng/mL (< 0.028)
[2023-10-12] MEDS: Sodium Chloride 0.9% 1,000 ML IV SCH (14:35)
[2023-10-12 17:10] LABS: Troponin I 0.018 ng/mL (< 0.028)
[2023-10-12] MEDS: hydrALAZINE 25 MG TAB PO SCH (21:50)
[2023-10-12] MEDS: Rosuvastatin 20 MG TAB PO SCH (21:52)
[2023-10-13 05:19] LABS: #Basophils 0.1 thou/uL (0.0-0.2); #Eosinphils 0.1 thou/uL (0.0-0.7); #Monocytes 0.5 thou/uL (0.11-0.59); #Neutrophils 3.3 thou/uL (1.40-6.50); %Basophils 0.9 % (0.0-1.0); %Eosinophils 1.8 % (0.0-10.0); %Lymphocytes 26.7 % (21.0-51.0); %Monocytes 9.9 % (0.0-10.0); %Neutrophils 60.3 % (42.0-75.0); Hematocrit 41.6 % (42.0-52.0); Hemoglobin 13.3 g/dL (14.0-18.0); Mean Corpuscular Hemoglobin 27.3 pg (27.0-31.0); Mean Corpuscular Volume 85.4 fl (78.0-98.0); Mean Platelet Volume 11.2 fL (7.4-10.4); Platelet Count 121 10x3/uL (130-400); RBC Distribution Width 14.5 % (11.5-14.5); Red Blood Cell (RBC) Count 4.87 mill/uL (4.70-6.10); White Blood Cell (WBC) Count 5.4 10x3/uL (4.8-10.8)
[2023-10-13 05:38] LABS: Anion Gap 12 mmol/L (10-20); BUN (Urea Nitrogen) 24 mg/dL (8.4-25.7); Calc. Creatinine Clearance 88 mL/min (70-130); Calcium 9.3 mg/dL (7.8-10.44); Carbon Dioxide 25 mmol/L (23-31); Chloride 109 mmol/L (98-107); Estimated GFR 74; Glucose 135 mg/dL (83-110); Sodium 142 mmol/L (136-145)
[2023-10-13] MEDS: Tamsulosin HCl 0.4 MG CAP PO SCH (07:30)
[2023-10-13] MEDS: Isosorbide Mononitrate 30 MG ER.TAB PO SCH (07:30)
[2023-10-13] MEDS: Aspirin 325 MG TAB PO SCH (07:30)
[2023-10-13] MEDS: Enoxaparin 40 MG (0.4 mL) SYRINGE SC SCH (07:31)
[2023-10-13 08:22] VITALS: TEMP 98.2
[2023-10-13] MEDS ORDERED: ADENOSINE 60 MG/20 ML SDV ONE (10:36)
[2023-10-13 11:51] VITALS: BP 162/77
[2023-10-13] MEDS: Lisinopril 20 MG TAB PO SCH (11:52)
[2023-10-13] MEDS: FLUoxetine HCl 10 MG CAP PO SCH (11:52)
== END 2023-10-13 15:49 | disposition home or self-care (01) ==
LOC: ERS 10:20 → ERHOLD 11:49 → 2SW 21:34
PROVIDERS: ADMIT Internal Medicine; ATTEND Internal Medicine
DX: R07.9 Chest pain, unspecified (principal); I25.10 Atherosclerotic heart disease of native coronary artery without angina pectoris; I10 Essential (primary) hypertension; E11.9 Type 2 diabetes mellitus without complications; E78.5 Hyperlipidemia, unspecified; N17.9 Acute kidney failure, unspecified; N40.0 Benign prostatic hyperplasia without lower urinary tract symptoms; Z79.84 Long term (current) use of oral hypoglycemic drugs; Z79.82 Long term (current) use of aspirin; Z79.899 Other long term (current) drug therapy
CPT/HCPCS: 71045; 78452; 80048; 80053; 82962; 83690; 83880; 84484 ×2; 85025 ×2; 85610; 85730; 93005; 93017; 99285; A9502; 36415; 36416; G0378; J0153; J7050

== ENCOUNTER 2024-02-02 11:11 | Emergency (ER) | payer MEDICARE ==
[2024-02-02 11:54] LABS: #Basophils 0.04 10x3/uL (0.0-0.2); %Basophils 0.5 % (0.0-1.0); %Eosinophils 1.2 % (0.0-10.0); %Lymphocytes 27.7 % (21.0-51.0); %Monocytes 8.8 % (0.0-10.0); %Neutrophils 61.1 % (42.0-75.0); Hematocrit 43.2 % (42.0-52.0); Hemoglobin 14.5 g/dL (14.0-18.0); Mean Corpuscular HGB CONC 33.6 g/dL (32.0-36.0); Mean Corpuscular Hemoglobin 28.6 pg (27.0-31.0); Mean Corpuscular Volume 85.2 fL (78.0-98.0); Mean Platelet Volume 11.4 fL (7.4-10.4); Platelet Count 164 10x3/uL (130-400); RBC Distribution Width 14.5 % (11.5-14.5); Red Blood Cell (RBC) Count 5.07 mill/uL (4.70-6.10)
[2024-02-02 12:10] LABS: ALT (SGPT) 20 U/L (8-55); AST (SGOT) 19 U/L (5-34); Alkaline Phosphatase 56 U/L (40-110); Anion Gap 14 mmol/L (10-20); BUN (Urea Nitrogen) 20 mg/dL (8.4-25.7); Calc. Creatinine Clearance 0 mL/min (70-130); Calcium 9.3 mg/dL (7.8-10.44); Carbon Dioxide 21 mmol/L (23-31); Chloride 108 mmol/L (98-107); Estimated GFR 73; Globulin 2.9 g/dL (2.4-3.5); Glucose 119 mg/dL (83-110); Potassium 4.5 mmol/L (3.5-5.1); Protein, Total 6.9 g/dL (5.8-8.1); Sodium 138 mmol/L (136-145)
[2024-02-02] MEDS ORDERED: Orphenadrine Citrate 60 MG/2 ML VIAL ONE (13:14)
[2024-02-02 13:45] LABS: Bacteria/HPF None Seen HPF (None Seen); Bilirubin Negative (Negative); Blood, Urine Negative (Negative); CAUTI Indications for Culture Dysuria,urgency,freq; Clarity Clear (Clear); Glucose, Urine (Dipstick) Normal (Negative); Ketone, Urine Negative (Negative); Leukocyte Negative Leu/uL (Negative); Nitrite Negative (Negative); Protein, Urine (Dipstick) Negative (Neg-Trace); RBC/HPF None Seen HPF (0-3); Specific Gravity, Urine 1.009 (1.002-1.036); Squamous Epithelial None Seen HPF (0-3); Urobilinogen Normal mg/dL (Less than 2); WBC/HPF 0-3 HPF (0-3); pH, Urine 5.5 (5.0-9.0)
[2024-02-02] MEDS ORDERED: Lidocaine 4% Patch TD SCH (13:45)
[2024-02-02 13:56] LABS: Urine Culture Reflex No No
== END 2024-02-02 14:31 | disposition home or self-care (01) ==
LOC: ERS 11:11
DX: M54.50 Low back pain, unspecified (principal); I25.2 Old myocardial infarction; I10 Essential (primary) hypertension; E11.9 Type 2 diabetes mellitus without complications; W20.8XXA Other cause of strike by thrown, projected or falling object, initial encounter; Y93.89 Activity, other specified; Z95.5 Presence of coronary angioplasty implant and graft; Z55.6 Problems related to health literacy
CPT/HCPCS: 80053; 81001; 85025; 96372; 99284; J2360; 36415

== ENCOUNTER 2024-03-01 07:27 | Outpatient (CLI) | payer MEDICARE | END 2024-03-01 07:28 | disposition home or self-care (01) | LOC: BICMRI 07:27 | PROVIDERS: ATTEND Family Medicine | DX: M47.26 Other spondylosis with radiculopathy, lumbar region (principal); M25.78 Osteophyte, vertebrae; M47.815 Spondylosis without myelopathy or radiculopathy, thoracolumbar region; M48.05 Spinal stenosis, thoracolumbar region; M51.16 Intervertebral disc disorders with radiculopathy, lumbar region; M48.061 Spinal stenosis, lumbar region without neurogenic claudication; M48.07 Spinal stenosis, lumbosacral region; M51.37 Other intervertebral disc degeneration, lumbosacral region; M51.27 Other intervertebral disc displacement, lumbosacral region; Z98.890 Other specified postprocedural states | CPT/HCPCS: 72100; 72148 ==

== ENCOUNTER 2024-05-15 20:23 | Inpatient (IN) | payer MEDICARE ==
[~2024-05-15 20:23] MED LIST: Iopamidol-370 76% 500 ML MDV (1 ML CHARGE) ONE
[2024-05-15] MEDS ORDERED: KETAMINE 100 MG/ML (5ML VIAL) ONE (20:28)
[2024-05-15] MEDS ORDERED: Propofol 1,000 MG/100 ML VIAL IV ONE (20:30)
[2024-05-15 20:46] LABS: #Basophils 0.09 10x3/uL (0.0-0.2); %Basophils 0.6 % (0.0-1.0); %Eosinophils 1.4 % (0.0-10.0); %Lymphocytes 13.3 % (21.0-51.0); %Monocytes 5.9 % (0.0-10.0); %Neutrophils 77.3 % (42.0-75.0); Hematocrit 47.9 % (42.0-52.0); Mean Corpuscular HGB CONC 31.3 g/dL (32.0-36.0); Mean Corpuscular Hemoglobin 28.6 pg (27.0-31.0); Mean Corpuscular Volume 91.2 fL (78.0-98.0); Mean Platelet Volume 10.8 fL (7.4-10.4); Platelet Count 163 10x3/uL (130-400); RBC Distribution Width 14.4 % (11.5-14.5); Red Blood Cell (RBC) Count 5.25 mill/uL (4.70-6.10)
[2024-05-15 20:57] LABS: Bilirubin Negative (Negative); Blood, Urine 1+ (Negative); CAUTI Indications for Culture Alt mental st,lethar; Clarity Turbid (Clear); Glucose, Urine (Dipstick) >=1000 mg/dL (Negative); Ketone, Urine Negative (Negative); Leukocyte Negative Leu/uL (Negative); Nitrite Negative (Negative); Protein, Urine (Dipstick) 300 mg/dL (Neg-Trace); Specific Gravity, Urine 1.013 (1.002-1.036); Squamous Epithelial 0-3 HPF (0-3); Urobilinogen Normal mg/dL (Less than 2)
[2024-05-15 20:58] LABS: Bacteria/HPF Rare-Few HPF (None Seen)
[2024-05-15 20:59] LABS: Urine Culture Reflex No No
[2024-05-15 21:02] LABS: Actual Bicarbonate (HCO3a) 22.5 mEq/L (22-28); Analyzer IN Cardio ER; Base Excess (BEa) -5.2 mEq/L (-2.0 to +3.0); CO2 Tension 52.3 mmHg (35.0-45.0); Calcium, Ionized (arterial) 1.17 mmol/L (1.12-1.30); Carboxyhemoglobin (COHb) 1.1 gm% (0.0-3.0); Hematocrit-ABG 41 % (42.0-52.0); Hemoglobin (Hb) 13.9 g/dL (14.0-18.0); O2 Tension (PaO2), arterial 92.1 mmHg (> 70.0); Potassium - ABG Lab 5.08 mmol/L (3.70-5.30); pH, Arterial 7.251 (7.35-7.45)
[2024-05-15 21:02] LABS: PTT 24.4 sec (22.9-36.1)
[2024-05-15 21:07] LABS: Puncture Site Left Radial artery
[2024-05-15 21:08] LABS: ALV-art Gradient 555.525 mmHg (0-20)
[2024-05-15] MEDS ORDERED: Sodium Chloride 0.9% 100 ML ONE (21:08)
[2024-05-15] MEDS ORDERED: Piperacillin/Tazobactam 4.5 GM VIAL ONE (21:08)
[2024-05-15 21:09] LABS: ALT (SGPT) 39 U/L (8-55); AST (SGOT) 33 U/L (5-34); Alkaline Phosphatase 60 U/L (40-110); Anion Gap 15 mmol/L (10-20); BUN (Urea Nitrogen) 20 mg/dL (8.4-25.7); Bilirubin, Total 0.4 mg/dL (0.2-1.2); Calc. Creatinine Clearance 0 mL/min (70-130); Calcium 9.1 mg/dL (7.8-10.44); Carbon Dioxide 24 mmol/L (23-31); Chloride 109 mmol/L (98-107); Estimated GFR 47; Globulin 2.9 g/dL (2.4-3.5); Glucose 325 mg/dL (83-110); Lipase 58 U/L (8-78); Magnesium 1.6 mg/dL (1.6-2.6); Potassium 5.2 mmol/L (3.5-5.1); Protein, Total 6.9 g/dL (5.8-8.1); Sodium 143 mmol/L (136-145)
[2024-05-15 21:10] LABS: Troponin I 0.022 ng/mL (< 0.028)
[2024-05-15] MEDS: Vancomycin (BATCH) 2.5 GM in Premix 1 BAG IVPB SCH (23:00)
[2024-05-15] MEDS ORDERED: Ondansetron ODT 4 MG TAB PO PRN (23:14)
[2024-05-15] MEDS ORDERED: Acetaminophen 650 MG Suppository PR PRN (23:14)
[2024-05-15] MEDS ORDERED: NOREPINEPHRINE 8 MG/250 ML-D5W 250 ML IVPB PRN (23:14)
[2024-05-15] MEDS ORDERED: Acetaminophen 325 MG TAB PO PRN (23:14)
[2024-05-15] MEDS ORDERED: Ondansetron PF 4 MG/2 ML Vial IVP PRN (23:14)
[2024-05-15] MEDS ORDERED: Ventilator Sedation Protocol 1 EACH FS SCH (23:15)
[2024-05-15] MEDS ORDERED: Morphine 2 MG/ML VIAL SLOW IVP PRN (23:30)
[2024-05-15] MEDS ORDERED: Fentanyl BOLUS 250 ML IVPB PRN (23:30)
[2024-05-15] MEDS ORDERED: Fentanyl CADD 100 ML IV SCH (23:30)
[2024-05-15] MEDS ORDERED: DISCONTINUE PREVIOUS NARCOTIC PAIN MEDICATIONS AND BENZODIAZEPINES FS SCH (23:30)
[2024-05-15] MEDS ORDERED: Propofol BOLUS 1,000 MG/100 ML VIAL IV PRN (23:30)
[2024-05-15 23:46] VITALS: BMI 40.9
[2024-05-15 23:52] LABS: Hemoglobin A1c 6.7 % (4.0-6.0)
[2024-05-16] MEDS ORDERED: Propofol 1,000 MG/100 ML VIAL IV ONE (02:07)
[2024-05-16] MEDS ORDERED: Electrolyte Replacement Protocol 1 EACH FS PRN (02:50)
[2024-05-16] MEDS: Magnesium 2 GM/50 ML(in water) 2 GM in Premix 1 BAG IVPB SCH (03:12)
[2024-05-16] MEDS: Cefepime 2 GM in Sodium Chloride 0.9% 100 ML IVPB SCH (04:45)
[2024-05-16] MEDS: Propofol 1,000 MG/100 ML VIAL IV PRN (06:28)
[2024-05-16] MEDS: Pantoprazole 40 MG VIAL IVP SCH (08:19)
[2024-05-16] MEDS: Heparin 5,000 UNITS/ML VIAL SC SCH (08:19)
[2024-05-16 08:33] LABS: Actual Bicarbonate (HCO3a) 22.1 mEq/L (22-28); Base Excess (BEa) 0.9 mEq/L (-2.0 to +3.0); CO2 Tension 26.3 mmHg (35.0-45.0); Calcium, Ionized (arterial) 1.14 mmol/L (1.12-1.30); Hematocrit-ABG 39 % (42.0-52.0); Hemoglobin (Hb) 13.4 g/dL (14.0-18.0); Potassium - ABG Lab 3.91 mmol/L (3.70-5.30); pH, Arterial 7.542 (7.35-7.45)
[2024-05-16 08:35] LABS: Lactic Acid 2.54 mmol/L (0.5-2.2)
[2024-05-16 08:41] LABS: Puncture Site Right Radial artery
[2024-05-16 08:42] LABS: ALV-art Gradient 586.125 mmHg (0-20)
[2024-05-16 08:43] LABS: Vancomycin, Random 20.3 ug/mL (See Comment)
[2024-05-16 08:46] LABS: ALT (SGPT) 31 U/L (8-55); AST (SGOT) 26 U/L (5-34); Albumin 3.5 g/dL (3.4-4.8); Alkaline Phosphatase 51 U/L (40-110); Anion Gap 12 mmol/L (10-20); BUN (Urea Nitrogen) 23 mg/dL (8.4-25.7); Bilirubin, Total 0.7 mg/dL (0.2-1.2); Calc. Creatinine Clearance 87 mL/min (70-130); Carbon Dioxide 24 mmol/L (23-31); Chloride 111 mmol/L (98-107); Estimated GFR 66; Globulin 2.4 g/dL (2.4-3.5); Glucose 140 mg/dL (83-110); Magnesium 2.1 mg/dL (1.6-2.6); Phosphorus 1.6 mg/dL (2.3-4.7); Potassium 4.1 mmol/L (3.5-5.1); Protein, Total 5.9 g/dL (5.8-8.1); Sodium 143 mmol/L (136-145)
[2024-05-16 08:59] LABS: #Basophils 0.03 10x3/uL (0.0-0.2); %Basophils 0.3 % (0.0-1.0); %Eosinophils 0.7 % (0.0-10.0); %Lymphocytes 17.4 % (21.0-51.0); %Monocytes 9.3 % (0.0-10.0); %Neutrophils 71.8 % (42.0-75.0); Hemoglobin 13.5 g/dL (14.0-18.0); Mean Corpuscular HGB CONC 32.1 g/dL (32.0-36.0); Mean Corpuscular Hemoglobin 27.7 pg (27.0-31.0); Mean Corpuscular Volume 86.2 fL (78.0-98.0); Mean Platelet Volume 11.5 fL (7.4-10.4); Platelet Count 122 10x3/uL (130-400); RBC Distribution Width 14.3 % (11.5-14.5); Red Blood Cell (RBC) Count 4.87 mill/uL (4.70-6.10)
[2024-05-16] MEDS ORDERED: Vancomycin 1.5 GM in Sodium Chloride 0.9% 250 ML 300 ML IVPB SCH (09:00)
[2024-05-16] MEDS: Potassium Phosphate 15 MMOL in Sodium Chloride 0.9% 100 ML IVPB SCH (10:00)
[2024-05-16] MEDS ORDERED: Vancomycin (BATCH) 1.5 GM in Premix 1 BAG IVPB SCH ×2 (12:00→22:00)
[2024-05-16] MEDS: cefTRIAXone\\ROCEPHIN 2 GM in Sodium Chloride 0.9% 100 ML IVPB SCH (12:20)
[2024-05-16] MEDS: Azithromycin 500 MG in Sodium Chloride 0.9% 250 ML 250 ML IVPB SCH (13:23)
[2024-05-16] MEDS: Lorazepam 2 MG/ML VIAL SLOW IVP PRN (14:30)
[2024-05-16] MEDS: Lisinopril 20 MG TAB PO SCH (20:16)
[2024-05-16] MEDS: Metoprolol Tartrate 50 MG TAB PO SCH (20:16)
[2024-05-17 04:40] LABS: #Basophils 0.04 10x3/uL (0.0-0.2); %Basophils 0.6 % (0.0-1.0); %Eosinophils 2.7 % (0.0-10.0); %Neutrophils 65.3 % (42.0-75.0); Hematocrit 40.5 % (42.0-52.0); Hemoglobin 12.7 g/dL (14.0-18.0); Mean Corpuscular HGB CONC 31.4 g/dL (32.0-36.0); Mean Corpuscular Hemoglobin 28.2 pg (27.0-31.0); Mean Corpuscular Volume 89.8 fL (78.0-98.0); Mean Platelet Volume 11.3 fL (7.4-10.4); Platelet Count 111 10x3/uL (130-400); RBC Distribution Width 14.5 % (11.5-14.5); Red Blood Cell (RBC) Count 4.51 mill/uL (4.70-6.10)
[2024-05-17 04:47] LABS: ALT (SGPT) 26 U/L (8-55); AST (SGOT) 24 U/L (5-34); Albumin 3.3 g/dL (3.4-4.8); Alkaline Phosphatase 58 U/L (40-110); Anion Gap 12 mmol/L (10-20); BUN (Urea Nitrogen) 17 mg/dL (8.4-25.7); Bilirubin, Total 0.6 mg/dL (0.2-1.2); Calc. Creatinine Clearance 96 mL/min (70-130); Calcium 8.8 mg/dL (7.8-10.44); Carbon Dioxide 24 mmol/L (23-31); Chloride 110 mmol/L (98-107); Estimated GFR 74; Globulin 2.7 g/dL (2.4-3.5); Glucose 146 mg/dL (83-110); Potassium 3.9 mmol/L (3.5-5.1); Sodium 142 mmol/L (136-145)
[2024-05-17] MEDS: hydrALAZINE 20 MG/ML VIAL SLOW IVP PRN (05:23)
[2024-05-17] MEDS: Isosorbide Dinitrate 20 MG TAB PO SCH (08:54)
[2024-05-17] MEDS: Insulin Regular, Human 100 UNIT/ML 10 ML VIAL SC PRN (09:01)
[2024-05-17] MEDS: hydrALAZINE 10 MG TAB PO SCH (09:11)
[2024-05-17] MEDS: Furosemide 40 MG (4 mL) VIAL SLOW IVP SCH (09:14)
[2024-05-17] MEDS: Dexmedetomidine In 0.9 % NaCl 100 ML IV SCH (11:33)
[2024-05-17] MEDS: Metoprolol Tartrate 5 MG (5 mL) VIAL IVP SCH (22:55)
[2024-05-17] MEDS: Morphine 2 MG/ML VIAL SLOW IVP PRN (22:56)
[2024-05-18] MEDS: Ipratropium/Albuterol 3 ML NEB NEB SCH (02:02)
[2024-05-18 04:09] LABS: #Basophils 0.03 10x3/uL (0.0-0.2); #Eosinophils Less than 0.03 10x3/uL (0.0-0.7); %Basophils 0.4 % (0.0-1.0); %Eosinophils 0.1 % (0.0-10.0); %Lymphocytes 16.3 % (21.0-51.0); %Monocytes 7.9 % (0.0-10.0); %Neutrophils 74.8 % (42.0-75.0); Hemoglobin 14.6 g/dL (14.0-18.0); Mean Corpuscular HGB CONC 31.7 g/dL (32.0-36.0); Mean Corpuscular Hemoglobin 28.5 pg (27.0-31.0); Mean Corpuscular Volume 89.7 fL (78.0-98.0); Mean Platelet Volume 11.3 fL (7.4-10.4); Platelet Count 111 10x3/uL (130-400); RBC Distribution Width 14.2 % (11.5-14.5); Red Blood Cell (RBC) Count 5.13 mill/uL (4.70-6.10)
[2024-05-18 04:23] LABS: ALT (SGPT) 26 U/L (8-55); AST (SGOT) 28 U/L (5-34); Albumin 3.5 g/dL (3.4-4.8); Alkaline Phosphatase 68 U/L (40-110); Anion Gap 15 mmol/L (10-20); BUN (Urea Nitrogen) 15 mg/dL (8.4-25.7); Bilirubin, Total 0.8 mg/dL (0.2-1.2); Calc. Creatinine Clearance 115 mL/min (70-130); Calcium 9.2 mg/dL (7.8-10.44); Carbon Dioxide 23 mmol/L (23-31); Chloride 108 mmol/L (98-107); Estimated GFR 91; Globulin 3.5 g/dL (2.4-3.5); Glucose 162 mg/dL (83-110); Potassium 4.1 mmol/L (3.5-5.1); Sodium 142 mmol/L (136-145)
[2024-05-18] MEDS: oxyCODONE 5 MG TAB PO PRN (10:59)
[2024-05-18] MEDS: Dextrose 5 %-0.45 % NaCl 1,000 ML IV SCH (11:30)
[2024-05-18] MEDS: Acetaminophen 500 MG TAB PO SCH (15:11)
[2024-05-18] MEDS: hydrALAZINE 25 MG TAB PO SCH (15:12)
[2024-05-19 04:19] LABS: #Basophils 0.06 10x3/uL (0.0-0.2); %Basophils 0.8 % (0.0-1.0); %Eosinophils 2.2 % (0.0-10.0); %Lymphocytes 20.5 % (21.0-51.0); %Monocytes 9.7 % (0.0-10.0); %Neutrophils 66.2 % (42.0-75.0); Hematocrit 45.5 % (42.0-52.0); Hemoglobin 14.2 g/dL (14.0-18.0); Mean Corpuscular HGB CONC 31.2 g/dL (32.0-36.0); Mean Corpuscular Hemoglobin 28.2 pg (27.0-31.0); Mean Corpuscular Volume 90.5 fL (78.0-98.0); Mean Platelet Volume 10.8 fL (7.4-10.4); Platelet Count 131 10x3/uL (130-400); RBC Distribution Width 14.3 % (11.5-14.5); Red Blood Cell (RBC) Count 5.03 mill/uL (4.70-6.10)
[2024-05-19 04:31] LABS: ALT (SGPT) 20 U/L (8-55); AST (SGOT) 17 U/L (5-34); Albumin 3.5 g/dL (3.4-4.8); Alkaline Phosphatase 65 U/L (40-110); Anion Gap 15 mmol/L (10-20); BUN (Urea Nitrogen) 18 mg/dL (8.4-25.7); Bilirubin, Total 0.8 mg/dL (0.2-1.2); Calc. Creatinine Clearance 107 mL/min (70-130); Calcium 9.4 mg/dL (7.8-10.44); Carbon Dioxide 25 mmol/L (23-31); Chloride 108 mmol/L (98-107); Estimated GFR 84; Globulin 3.4 g/dL (2.4-3.5); Glucose 177 mg/dL (83-110); Potassium 3.8 mmol/L (3.5-5.1); Protein, Total 6.9 g/dL (5.8-8.1); Sodium 144 mmol/L (136-145)
[2024-05-19] MEDS: Potassium Chloride 20 MEQ TAB PO SCH (10:00)
[2024-05-19] MEDS: Aspirin 81 mg Enteric Coated Tablet PO SCH (10:19)
[2024-05-19] MEDS: Metoprolol Tartrate 50 MG TAB PO SCH (10:20)
[2024-05-19] MEDS: Potassium Chloride 20 MEQ in Premix 1 BAG IVPB SCH (10:20)
[2024-05-19] MEDS: Acetaminophen 500 MG TAB PO SCH (11:45)
[2024-05-19] MEDS: hydrALAZINE 25 MG TAB PO SCH (13:59)
[2024-05-19] MEDS: Rosuvastatin 20 MG TAB PO SCH (21:00)
[2024-05-19] MEDS ORDERED: Rosuvastatin 20 MG TAB PO SCH (21:00)
[2024-05-20 04:16] LABS: #Basophils 0.03 10x3/uL (0.0-0.2); %Basophils 0.6 % (0.0-1.0); %Eosinophils 3.9 % (0.0-10.0); %Lymphocytes 20.5 % (21.0-51.0); %Monocytes 9.3 % (0.0-10.0); %Neutrophils 64.8 % (42.0-75.0); Hematocrit 43.6 % (42.0-52.0); Hemoglobin 13.5 g/dL (14.0-18.0); Mean Corpuscular Hemoglobin 28.1 pg (27.0-31.0); Mean Corpuscular Volume 90.6 fL (78.0-98.0); Mean Platelet Volume 11.1 fL (7.4-10.4); Platelet Count 130 10x3/uL (130-400); RBC Distribution Width 14.2 % (11.5-14.5); Red Blood Cell (RBC) Count 4.81 mill/uL (4.70-6.10)
[2024-05-20 04:34] LABS: ALT (SGPT) 19 U/L (8-55); AST (SGOT) 18 U/L (5-34); Albumin 3.4 g/dL (3.4-4.8); Alkaline Phosphatase 58 U/L (40-110); Anion Gap 14 mmol/L (10-20); BUN (Urea Nitrogen) 18 mg/dL (8.4-25.7); Bilirubin, Total 0.7 mg/dL (0.2-1.2); Calc. Creatinine Clearance 112 mL/min (70-130); Calcium 9.3 mg/dL (7.8-10.44); Carbon Dioxide 28 mmol/L (23-31); Chloride 109 mmol/L (98-107); Estimated GFR 88; Globulin 3.1 g/dL (2.4-3.5); Glucose 150 mg/dL (83-110); Magnesium 2.1 mg/dL (1.6-2.6); Potassium 3.9 mmol/L (3.5-5.1); Protein, Total 6.5 g/dL (5.8-8.1); Sodium 147 mmol/L (136-145)
[2024-05-20] MEDS ORDERED: Aspirin 325 MG TAB PO SCH (09:00)
[2024-05-20] MEDS ORDERED: Communication Order-Pharmacy FS SCH (11:45)
[2024-05-20] MEDS: Lactated Ringer's 1,000 ML IV SCH (12:13)
[2024-05-21 05:17] LABS: ALT (SGPT) 31 U/L (8-55); AST (SGOT) 32 U/L (5-34); Albumin 3.2 g/dL (3.4-4.8); Alkaline Phosphatase 60 U/L (40-110); Anion Gap 12 mmol/L (10-20); BUN (Urea Nitrogen) 18 mg/dL (8.4-25.7); Bilirubin, Total 0.6 mg/dL (0.2-1.2); Calc. Creatinine Clearance 116 mL/min (70-130); Carbon Dioxide 27 mmol/L (23-31); Chloride 109 mmol/L (98-107); Cholesterol 110 mg/dl (< 200 Desired); Estimated GFR 92; Globulin 2.7 g/dL (2.4-3.5); Glucose 143 mg/dL (83-110); HDL Cholesterol 22 mg/dL (>60 Neg Risk); LDL Cholesterol, Calculated 41 mg/dL; Potassium 3.3 mmol/L (3.5-5.1); Protein, Total 5.9 g/dL (5.8-8.1); Sodium 145 mmol/L (136-145); Triglycerides 236 mg/dL (Less than 150)
[2024-05-21 05:19] LABS: #Basophils 0.04 10x3/uL (0.0-0.2); %Basophils 0.7 % (0.0-1.0); %Eosinophils 3.7 % (0.0-10.0); %Lymphocytes 21.7 % (21.0-51.0); %Monocytes 10.3 % (0.0-10.0); %Neutrophils 62.6 % (42.0-75.0); Hematocrit 40.3 % (42.0-52.0); Mean Corpuscular HGB CONC 32.3 g/dL (32.0-36.0); Mean Corpuscular Volume 86.9 fL (78.0-98.0); Mean Platelet Volume 11.1 fL (7.4-10.4); Platelet Count 121 10x3/uL (130-400); RBC Distribution Width 13.8 % (11.5-14.5); Red Blood Cell (RBC) Count 4.64 mill/uL (4.70-6.10)
[2024-05-21] MEDS: Sodium Chloride 0.9% 1,000 ML IV SCH ×2 (06:00→14:01)
[2024-05-21] MEDS: Pantoprazole DR 40 MG TAB PO SCH (07:59)
[2024-05-21] MEDS: Potassium Chloride 20 MEQ TAB PO SCH ×3 (07:59→16:22)
[2024-05-21] MEDS ORDERED: fentaNYL 50 mcg/mL 1 mL Vial ONE (09:35)
[2024-05-21] MEDS ORDERED: Midazolam HCl 2 mg/2 ml Vial ONE (09:36)
[2024-05-21] MEDS ORDERED: Nitroglycerin 50 MG/250 ML BOT 0 ML ONE (09:36)
[2024-05-21] MEDS ORDERED: Heparin 10,000 UNITS/ 10 ML VIAL ONE (09:36)
[2024-05-21] MEDS ORDERED: Iopamidol 370 76% 100 ML VIAL ONE (10:42)
[2024-05-21] MEDS ORDERED: Sodium Chloride 0.9% 200 ML IV PRN (10:48)
[2024-05-21] MEDS ORDERED: Acetaminophen/Codeine 30-300mg Tablet PO PRN (10:48)
[2024-05-21] MEDS ORDERED: Nitroglycerin 0.4 MG TAB (25 Tab Bottle) SL PRN (10:48)
[2024-05-21] MEDS ORDERED: Sodium Chloride 0.9% 100 ML ONE (13:08)
[2024-05-21] MEDS ORDERED: cefTRIAXone (ROCEPHIN) 2 GM VIAL ONE (13:08)
[2024-05-21] MEDS: Heparin 10,000 UNITS/ 10 ML VIAL SLOW IVP SCH (14:03)
[2024-05-21] MEDS: Heparin 25,000 units/D5W 500 ML IV SCH (14:06)
[2024-05-21 15:00] LABS: Hematocrit 39.2 % (42.0-52.0); Hemoglobin 12.6 g/dL (14.0-18.0); Platelet Count 135 10x3/uL (130-400)
[2024-05-21 18:47] LABS: Potassium 3.8 mmol/L (3.5-5.1)
[2024-05-21] MEDS: Metoprolol Tartrate 50 MG TAB PO SCH (19:39)
[2024-05-21] MEDS ORDERED: niCARdipine 40MG In NaCl 40 MG/200 ML BAG IVPB SCH (21:45)
[2024-05-21] MEDS: Albumin 25% 25 GM (100 mL) BOT IVPB SCH (21:55)
[2024-05-21] MEDS: Lorazepam 2 MG/ML VIAL SLOW IVP PRN (21:56)
[2024-05-21] MEDS: niCARdipine 50 MG, Admixture Fee 1 EACH in Sodium Chloride 0.9% 250 ML 230 ML IV SCH (22:05)
[2024-05-22] MEDS: Acetaminophen/Codeine 30-300mg Tablet PO PRN (00:51)
[2024-05-22 04:58] LABS: Anion Gap 12 mmol/L (10-20); BUN (Urea Nitrogen) 12 mg/dL (8.4-25.7); Calc. Creatinine Clearance 128 mL/min (70-130); Carbon Dioxide 25 mmol/L (23-31); Chloride 109 mmol/L (98-107); Estimated GFR 95; Glucose 159 mg/dL (83-110); Potassium 3.8 mmol/L (3.5-5.1); Sodium 142 mmol/L (136-145)
[2024-05-22 05:16] LABS: #Basophils 0.05 10x3/uL (0.0-0.2); %Basophils 0.7 % (0.0-1.0); %Eosinophils 5.4 % (0.0-10.0); %Lymphocytes 15.3 % (21.0-51.0); %Monocytes 9.3 % (0.0-10.0); %Neutrophils 68.3 % (42.0-75.0); Hematocrit 40.7 % (42.0-52.0); Hemoglobin 13.3 g/dL (14.0-18.0); Mean Corpuscular HGB CONC 32.7 g/dL (32.0-36.0); Mean Corpuscular Hemoglobin 28.1 pg (27.0-31.0); Mean Corpuscular Volume 85.9 fL (78.0-98.0); Platelet Count 133 10x3/uL (130-400); RBC Distribution Width 13.9 % (11.5-14.5); Red Blood Cell (RBC) Count 4.74 mill/uL (4.70-6.10)
[2024-05-22] MEDS: Dexmedetomidine In 0.9 % NaCl 100 ML IVPB SCH (07:20)
[2024-05-22] MEDS ORDERED: Heparin 10,000 UNITS/1 ML VIAL 30,000 UNITS in Sodium Chloride 0.9% 1,000 ML FS SCH (09:15)
[2024-05-22] MEDS ORDERED: Albumin 5% 500 ML ONE (09:16)
[2024-05-22] MEDS ORDERED: Dexamethasone 4 mg/ml Vial ONE (09:16)
[2024-05-22] MEDS ORDERED: PHENYLEPHRINE-NS 100 MCG/ML 10 ML SYRINGE ONE (09:16)
[2024-05-22] MEDS ORDERED: EPINEPHrine 1 MG/ML VIAL ONE (09:16)
[2024-05-22] MEDS ORDERED: Bupivacaine PF 0.5% 30 ML VIAL ONE (09:16)
[2024-05-22] MEDS ORDERED: Etomidate 40 MG (20 mL) VIAL ONE (11:21)
[2024-05-22] MEDS ORDERED: Fentanyl 250 MCG/5 ML VIAL ONE (11:21)
[2024-05-22] MEDS ORDERED: Vecuronium 10 MG VIAL ONE (11:21)
[2024-05-22] MEDS ORDERED: Aminocaproic Acid 5 GM/20 ML VIAL ONE ×2 (11:22→12:11)
[2024-05-22] MEDS ORDERED: Midazolam HCl 2 mg/2 ml Vial ONE ×2 (11:49)
[2024-05-22] MEDS ORDERED: Mannitol 12.5 GM/50 ML ONE (12:11)
[2024-05-22] MEDS ORDERED: Protamine Sulfate 250 MG/25 ML VIAL ONE (12:11)
[2024-05-22] MEDS ORDERED: Papaverine 60 MG/2 ML VIAL ONE (12:11)
[2024-05-22] MEDS ORDERED: Heparin 5,000 UNITS/ML VIAL ONE (12:11)
[2024-05-22] MEDS ORDERED: Lidocaine 2% PF 100 mg/5 ml Syringe ONE (12:11)
[2024-05-22] MEDS ORDERED: Heparin 30,000 units/30 ml VIAL ONE (12:11)
[2024-05-22] MEDS ORDERED: Vancomycin 1 GM VIAL ONE (12:11)
[2024-05-22] MEDS ORDERED: Cardioplegic Soln 1,000 ML BAG ONE (12:11)
[2024-05-22] MEDS ORDERED: Sodium Bicarb 50 mEq/50 ML VIAL ONE (12:11)
[2024-05-22] MEDS ORDERED: Magnesium 5 GM/10 ML VIAL ONE (12:11)
[2024-05-22] MEDS ORDERED: Thrombin 5000 UNITS/5 ML VIAL ONE (12:11)
[2024-05-22] MEDS ORDERED: Potassium Chloride 60 mEq (30 mL) VIAL ONE (12:11)
[2024-05-22] MEDS ORDERED: Calcium Chloride 1 GM/10 ML Abboject SYRINGE ONE (12:11)
[2024-05-22] MEDS ORDERED: fentaNYL PF 100 MCG/2 ML SYRINGE ONE ×3 (13:27→16:00)
[2024-05-22] MEDS ORDERED: PROPOFOL 20 ML ONE (13:29)
[2024-05-22] MEDS ORDERED: Norepinephrine 4 MG/4 ML VIAL ONE (13:53)
[2024-05-22] MEDS ORDERED: Insulin Regular, Human 100 UNIT/ML 10 ML VIAL ONE (14:41)
[2024-05-22] MEDS ORDERED: Rocuronium Bromide 10 MG/ML (10ML VIAL) ONE (15:33)
[2024-05-22 16:44] LABS: Actual Bicarbonate (HCO3a) 21.7 mEq/L (22-28); Base Excess (BEa) -4.7 mEq/L (-2.0 to +3.0); CO2 Tension 44.8 mmHg (35.0-45.0); Calcium, Ionized (arterial) 1.21 mmol/L (1.12-1.30); O2 Tension (PaO2), arterial 78.2 mmHg (> 70.0); Potassium - ABG Lab 3.92 mmol/L (3.70-5.30); pH, Arterial 7.303 (7.35-7.45)
[2024-05-22] MEDS: Nitroglycerin 50 MG/250 ML BOT 250 ML ONE (17:10)
[2024-05-22] MEDS ORDERED: Nitroglycerin 50 MG/250 ML BOT 250 ML IVPB PRN (17:23)
[2024-05-22] MEDS ORDERED: Ipratropium/Albuterol 3 ML NEB NEB PRN (17:23)
[2024-05-22] MEDS ORDERED: hydrALAZINE 20 MG/ML VIAL SLOW IVP PRN (17:23)
[2024-05-22] MEDS ORDERED: NOREPINEPHRINE 8 MG/250 ML-D5W 250 ML IVPB PRN (17:23)
[2024-05-22] MEDS ORDERED: Mag-Al 1200 mg/1200 mg/30 ML UDCUP PO PRN (17:23)
[2024-05-22] MEDS ORDERED: Ondansetron PF 4 MG/2 ML Vial IVP PRN (17:23)
[2024-05-22] MEDS ORDERED: niCARdipine 25 MG in Sodium Chloride 0.9% 250 ML 250 ML IVPB PRN (17:23)
[2024-05-22] MEDS ORDERED: Guaifenesin DM 100-10/5 ML UDCUP PO PRN (17:23)
[2024-05-22] MEDS ORDERED: Bisacodyl 5 MG TAB PO PRN (17:23)
[2024-05-22] MEDS ORDERED: Bisacodyl 10 MG SUPP PR PRN (17:23)
[2024-05-22] MEDS ORDERED: Glucagon 1 MG/ML KIT SC PRN (17:30)
[2024-05-22] MEDS ORDERED: Dextrose 50% Abboject 50 ML SYRINGE SLOW IVP PRN (17:30)
[2024-05-22] MEDS ORDERED: Insulin Regular, Human 100 UNIT/ML 10 ML VIAL SC PRN (17:30)
[2024-05-22] MEDS ORDERED: Dextrose 5% in Water 1,000 ML IV PRN (17:30)
[2024-05-22 17:39] LABS: Anion Gap 11 mmol/L (10-20); BUN (Urea Nitrogen) 15 mg/dL (8.4-25.7); Calc. Creatinine Clearance 139 mL/min (70-130); Calcium 8.1 mg/dL (7.8-10.44); Carbon Dioxide 22 mmol/L (23-31); Chloride 114 mmol/L (98-107); Estimated GFR 97; Glucose 174 mg/dL (83-110); Potassium 3.9 mmol/L (3.5-5.1); Sodium 143 mmol/L (136-145)
[2024-05-22] MEDS: Magnesium 2 GM/50 ML(in water) 2 GM in Premix 1 BAG IVPB SCH (17:40)
[2024-05-22] MEDS: D5 1/2 NS w/20 mEq KCL 1,000 ML IV SCH (17:41)
[2024-05-22 17:46] LABS: INR-International Normal Ratio 1.3; Prothrombin Time 15.8 sec (12.0-14.7)
[2024-05-22 17:47] LABS: PTT 29.9 sec (22.9-36.1)
[2024-05-22 17:50] LABS: #Basophils 0.04 10x3/uL (0.0-0.2); %Basophils 0.5 % (0.0-1.0); %Eosinophils 1.8 % (0.0-10.0); %Lymphocytes 12.4 % (21.0-51.0); %Neutrophils 76.1 % (42.0-75.0); Hematocrit 35.6 % (42.0-52.0); Hemoglobin 11.3 g/dL (14.0-18.0); Mean Corpuscular HGB CONC 31.7 g/dL (32.0-36.0); Mean Corpuscular Hemoglobin 28.5 pg (27.0-31.0); Mean Corpuscular Volume 89.9 fL (78.0-98.0); Mean Platelet Volume 10.4 fL (7.4-10.4); Platelet Count 107 10x3/uL (130-400); RBC Distribution Width 13.9 % (11.5-14.5); Red Blood Cell (RBC) Count 3.96 mill/uL (4.70-6.10)
[2024-05-22] MEDS: CEFAZOLIN 2 GM in Sodium Chloride 0.9% 100 ML IVPB SCH (17:51)
[2024-05-22] MEDS: Morphine 2 MG/ML VIAL SLOW IVP PRN (18:00)
[2024-05-22] MEDS: fentaNYL 50 mcg/mL 1 mL Vial SLOW IVP PRN (18:08)
[2024-05-22] MEDS: Potassium Chloride 20 MEQ (100 mL) BAG IVPB PRN (19:17)
[2024-05-22] MEDS: Famotidine/PF 20 mg/2ml Vial SLOW IVP SCH (19:50)
[2024-05-22] MEDS: INSULIN REGULAR IN 0.9 % NACL 100 UNITS in Premix 1 BAG IVPB SCH (19:54)
[2024-05-22 21:06] LABS: Actual Bicarbonate (HCO3a) 21.2 mEq/L (22-28); Base Excess (BEa) -5.5 mEq/L (-2.0 to +3.0); CO2 Tension 46.1 mmHg (35.0-45.0); Hematocrit-ABG 37 % (42.0-52.0); O2 Tension (PaO2), arterial 88.1 mmHg (> 70.0)
[2024-05-22 21:07] LABS: Analyzer IN Cardio ER; Calcium, Ionized (arterial) 1.19 mmol/L (1.12-1.30); Carboxyhemoglobin (COHb) 1.4 gm% (0.0-3.0); Hemoglobin (Hb) 12.7 g/dL (14.0-18.0); Potassium - ABG Lab 5.11 mmol/L (3.70-5.30); Puncture Site Arterial Line
[2024-05-22 21:08] LABS: ALV-art Gradient 282.075 mmHg (0-20)
[2024-05-22] MEDS: Sodium Bicarb 50 mEq/50 ML VIAL IVP SCH (21:36)
[2024-05-22] MEDS: Sodium Bicarb 50 MEQ/50 ML Abboject 8.4% SYRINGE ONE (21:36)
[2024-05-22 23:52] LABS: Hematocrit 36.2 % (42.0-52.0); Hemoglobin 11.5 g/dL (14.0-18.0)
[2024-05-23 00:01] LABS: Potassium 4.8 mmol/L (3.5-5.1)
[2024-05-23] MEDS: Albumin 5% 12.5 GM (250 mL) BOT IVPB PRN ×2 (00:09→06:33)
[2024-05-23 01:36] LABS: Actual Bicarbonate (HCO3a) 24.7 mEq/L (22-28); Base Excess (BEa) -0.5 mEq/L (-2.0 to +3.0); CO2 Tension 42.5 mmHg (35.0-45.0); Hematocrit-ABG 34 % (42.0-52.0); Hemoglobin (Hb) 11.5 g/dL (14.0-18.0); O2 Tension (PaO2), arterial 74.9 mmHg (> 70.0)
[2024-05-23 01:37] LABS: Calcium, Ionized (arterial) 1.13 mmol/L (1.12-1.30); Carboxyhemoglobin (COHb) 0.4 gm% (0.0-3.0); Potassium - ABG Lab 4.66 mmol/L (3.70-5.30)
[2024-05-23 01:38] LABS: ALV-art Gradient 192.825 mmHg (0-20); Analyzer IN Cardio ER; Puncture Site Arterial Line
[2024-05-23] MEDS: fentaNYL 50 mcg/mL 1 mL Vial SLOW IVP PRN (02:30)
[2024-05-23] MEDS: traMADol HCl 50 MG TAB PO PRN ×2 (03:08→10:23)
[2024-05-23 04:27] LABS: #Basophils Less than 0.03 10x3/uL (0.0-0.2); #Eosinophils Less than 0.03 10x3/uL (0.0-0.7); %Basophils 0.2 % (0.0-1.0); %Eosinophils 0.1 % (0.0-10.0); %Monocytes 8.6 % (0.0-10.0); %Neutrophils 82.9 % (42.0-75.0); Hemoglobin 10.9 g/dL (14.0-18.0); Mean Corpuscular HGB CONC 32.1 g/dL (32.0-36.0); Mean Corpuscular Volume 87.4 fL (78.0-98.0); Mean Platelet Volume 10.6 fL (7.4-10.4); Platelet Count 131 10x3/uL (130-400); RBC Distribution Width 14.2 % (11.5-14.5); Red Blood Cell (RBC) Count 3.89 mill/uL (4.70-6.10)
[2024-05-23 04:39] LABS: Anion Gap 12 mmol/L (10-20); BUN (Urea Nitrogen) 18 mg/dL (8.4-25.7); Calc. Creatinine Clearance 105 mL/min (70-130); Calcium 8.2 mg/dL (7.8-10.44); Carbon Dioxide 23 mmol/L (23-31); Chloride 113 mmol/L (98-107); Estimated GFR 86; Glucose 159 mg/dL (83-110); Potassium 4.6 mmol/L (3.5-5.1); Sodium 143 mmol/L (136-145)
[2024-05-23] MEDS ORDERED: Glucagon 1 MG/ML KIT IM PRN (06:49)
[2024-05-23] MEDS ORDERED: Dextrose 5% in Water 1,000 ML IV PRN (06:49)
[2024-05-23] MEDS ORDERED: Dextrose 50% Abboject 50 ML SYRINGE SLOW IVP PRN (06:49)
[2024-05-23] MEDS: Carvedilol 3.125 MG TAB PO SCH (07:40)
[2024-05-23] MEDS: Aspirin 325 MG TAB PO SCH (07:40)
[2024-05-23] MEDS: Tamsulosin HCl 0.4 MG CAP PO SCH (07:40)
[2024-05-23] MEDS: Magnesium 2 GM/50 ML(in water) 2 GM in Premix 1 BAG IVPB SCH (07:41)
[2024-05-23] MEDS: Gabapentin 300 MG CAP PO SCH (07:42)
[2024-05-23] MEDS: CO Q-10 CAPSULE 100 MG PO SCH (07:42)
[2024-05-23] MEDS: Lansoprazole 30 MG/10 ML UDCUP PER TUBE SCH (08:47)
[2024-05-23] MEDS: Pantoprazole DR 40 MG TAB PO SCH (10:23)
[2024-05-23] MEDS: Insulin Lispro 100 UNIT/ML 10 ML VIAL SC PRN (11:37)
[2024-05-23] MEDS: Rosuvastatin 20 MG TAB PO SCH (20:33)
[2024-05-23] MEDS: Insulin Glargine 30 UNITS/0.3 ML VIAL SC SCH (20:34)
[2024-05-24 04:09] LABS: #Basophils 0.06 10x3/uL (0.0-0.2); %Basophils 0.6 % (0.0-1.0); %Eosinophils 1.4 % (0.0-10.0); %Lymphocytes 15.7 % (21.0-51.0); %Monocytes 9.5 % (0.0-10.0); %Neutrophils 71.8 % (42.0-75.0); Hematocrit 30.9 % (42.0-52.0); Hemoglobin 9.7 g/dL (14.0-18.0); Mean Corpuscular HGB CONC 31.4 g/dL (32.0-36.0); Mean Platelet Volume 10.8 fL (7.4-10.4); Platelet Count 133 10x3/uL (130-400); Red Blood Cell (RBC) Count 3.47 mill/uL (4.70-6.10)
[2024-05-24 04:37] LABS: Anion Gap 12 mmol/L (10-20); BUN (Urea Nitrogen) 17 mg/dL (8.4-25.7); Calc. Creatinine Clearance 111 mL/min (70-130); Calcium 8.5 mg/dL (7.8-10.44); Carbon Dioxide 26 mmol/L (23-31); Chloride 107 mmol/L (98-107); Estimated GFR 91; Glucose 175 mg/dL (83-110); Potassium 3.9 mmol/L (3.5-5.1); Sodium 141 mmol/L (136-145)
[2024-05-24] MEDS: Potassium Chloride 10 MEQ TAB PO SCH (08:22)
[2024-05-24] MEDS: Furosemide 40 MG TAB PO SCH (08:22)
[2024-05-25 04:02] LABS: #Basophils 0.05 10x3/uL (0.0-0.2); %Basophils 0.6 % (0.0-1.0); %Eosinophils 2.5 % (0.0-10.0); %Lymphocytes 17.2 % (21.0-51.0); %Monocytes 10.1 % (0.0-10.0); %Neutrophils 68.5 % (42.0-75.0); Hematocrit 25.4 % (42.0-52.0); Hemoglobin 8.1 g/dL (14.0-18.0); Mean Corpuscular HGB CONC 31.9 g/dL (32.0-36.0); Mean Corpuscular Hemoglobin 28.6 pg (27.0-31.0); Mean Corpuscular Volume 89.8 fL (78.0-98.0); Platelet Count 115 10x3/uL (130-400); Red Blood Cell (RBC) Count 2.83 mill/uL (4.70-6.10)
[2024-05-25 04:26] LABS: Anion Gap 11 mmol/L (10-20); BUN (Urea Nitrogen) 18 mg/dL (8.4-25.7); Calc. Creatinine Clearance 114 mL/min (70-130); Calcium 7.9 mg/dL (7.8-10.44); Carbon Dioxide 27 mmol/L (23-31); Chloride 106 mmol/L (98-107); Estimated GFR 92; Glucose 148 mg/dL (83-110); Potassium 3.7 mmol/L (3.5-5.1); Sodium 140 mmol/L (136-145)
[2024-05-25] MEDS ORDERED: Guaifenesin DM 100-10/5 ML UDCUP PO PRN (09:47)
[2024-05-25] MEDS ORDERED: Artificial Tear Ophth Sol 15 ML BOT EA EYE PRN (09:47)
[2024-05-26 05:01] LABS: #Basophils 0.06 10x3/uL (0.0-0.2); %Basophils 0.8 % (0.0-1.0); %Eosinophils 3.3 % (0.0-10.0); %Lymphocytes 18.7 % (21.0-51.0); %Monocytes 10.5 % (0.0-10.0); Hemoglobin 8.5 g/dL (14.0-18.0); Mean Corpuscular HGB CONC 32.7 g/dL (32.0-36.0); Mean Corpuscular Hemoglobin 28.2 pg (27.0-31.0); Mean Corpuscular Volume 86.4 fL (78.0-98.0); Mean Platelet Volume 11.2 fL (7.4-10.4); Platelet Count 143 10x3/uL (130-400); RBC Distribution Width 14.1 % (11.5-14.5); Red Blood Cell (RBC) Count 3.01 mill/uL (4.70-6.10)
[2024-05-26 05:03] LABS: Anion Gap 10 mmol/L (10-20); BUN (Urea Nitrogen) 21 mg/dL (8.4-25.7); Calc. Creatinine Clearance 87 mL/min (70-130); Calcium 8.3 mg/dL (7.8-10.44); Carbon Dioxide 27 mmol/L (23-31); Chloride 105 mmol/L (98-107); Estimated GFR 69; Glucose 135 mg/dL (83-110); Potassium 4.2 mmol/L (3.5-5.1); Sodium 138 mmol/L (136-145)
[2024-05-26] MEDS: FLUoxetine HCl 10 MG CAP PO SCH (10:14)
[2024-05-26] MEDS: Carvedilol 6.25 MG TAB PO SCH (18:22)
[2024-05-26] MEDS: Acetaminophen 325 MG TAB PO PRN (21:16)
[2024-05-26] MEDS: diphenhydrAMINE 25 MG CAP PO PRN (21:17)
[2024-05-27 05:12] LABS: Anion Gap 12 mmol/L (10-20); BUN (Urea Nitrogen) 20 mg/dL (8.4-25.7); Calc. Creatinine Clearance 75 mL/min (70-130); Calcium 8.5 mg/dL (7.8-10.44); Carbon Dioxide 30 mmol/L (23-31); Chloride 102 mmol/L (98-107); Estimated GFR 57; Glucose 126 mg/dL (83-110); Potassium 4.4 mmol/L (3.5-5.1); Sodium 140 mmol/L (136-145)
[2024-05-27 06:30] LABS: #Basophils 0.05 10x3/uL (0.0-0.2); %Basophils 0.7 % (0.0-1.0); %Eosinophils 4.2 % (0.0-10.0); %Lymphocytes 20.3 % (21.0-51.0); %Monocytes 10.5 % (0.0-10.0); %Neutrophils 62.6 % (42.0-75.0); Hematocrit 25.9 % (42.0-52.0); Hemoglobin 8.2 g/dL (14.0-18.0); Mean Corpuscular HGB CONC 31.7 g/dL (32.0-36.0); Mean Corpuscular Hemoglobin 28.1 pg (27.0-31.0); Mean Corpuscular Volume 88.7 fL (78.0-98.0); Mean Platelet Volume 10.8 fL (7.4-10.4); Platelet Count 177 10x3/uL (130-400); RBC Distribution Width 13.9 % (11.5-14.5); Red Blood Cell (RBC) Count 2.92 mill/uL (4.70-6.10)
[2024-05-27] MEDS: Furosemide 20 MG TAB PO SCH (11:58)
[2024-05-27 15:49] VITALS: BMI 36.7
[2024-05-27] MEDS ORDERED: Lorazepam 2 MG/ML VIAL SLOW IVP SCH (16:30)
[2024-05-28 05:03] LABS: #Basophils 0.07 10x3/uL (0.0-0.2); %Basophils 1.1 % (0.0-1.0); %Eosinophils 5.2 % (0.0-10.0); %Lymphocytes 22.6 % (21.0-51.0); %Monocytes 9.7 % (0.0-10.0); %Neutrophils 59.7 % (42.0-75.0); Hematocrit 26.3 % (42.0-52.0); Hemoglobin 8.2 g/dL (14.0-18.0); Mean Corpuscular HGB CONC 31.2 g/dL (32.0-36.0); Mean Corpuscular Hemoglobin 27.8 pg (27.0-31.0); Mean Corpuscular Volume 89.2 fL (78.0-98.0); Mean Platelet Volume 10.7 fL (7.4-10.4); Platelet Count 196 10x3/uL (130-400); RBC Distribution Width 13.9 % (11.5-14.5); Red Blood Cell (RBC) Count 2.95 mill/uL (4.70-6.10)
[2024-05-28 05:18] LABS: Anion Gap 14 mmol/L (10-20); BUN (Urea Nitrogen) 18 mg/dL (8.4-25.7); Calc. Creatinine Clearance 70 mL/min (70-130); Calcium 8.4 mg/dL (7.8-10.44); Carbon Dioxide 28 mmol/L (23-31); Chloride 104 mmol/L (98-107); Estimated GFR 54; Glucose 129 mg/dL (83-110); Potassium 4.2 mmol/L (3.5-5.1); Sodium 142 mmol/L (136-145)
[2024-05-28] MEDS: Vancomycin (BATCH) 1.5 GM in Premix 1 BAG IVPB SCH (06:42)
[2024-05-28] MEDS ORDERED: Gentamicin 80 MG/2 ML VIAL ONE (08:35)
[2024-05-28] MEDS ORDERED: CEFAZOLIN 2 GM VIAL ONE (08:36)
[2024-05-28] MEDS ORDERED: Midazolam HCl 2 mg/2 ml Vial ONE (09:05)
[2024-05-28] MEDS ORDERED: Iopamidol 370 76% 100 ML VIAL ONE (09:11)
[2024-05-28] MEDS ORDERED: ePHEDrine Sulfate 50 MG/10 ML VIAL ONE (09:34)
[2024-05-28 12:34] LABS: Actual Bicarbonate (HCO3a) 24.9 mEq/L (22-28); Analyzer IN Cardio OR; Base Excess (BEa) 0.2 mEq/L (-2.0 to +3.0); CO2 Tension 40.8 mmHg (35.0-45.0); Calcium, Ionized (arterial) 1.15 mmol/L (1.12-1.30); Carboxyhemoglobin (COHb) 0.5 gm% (0.0-3.0); Hematocrit-ABG 38 % (42.0-52.0); Hemoglobin (Hb) 12.8 g/dL (14.0-18.0); O2 Tension (PaO2), arterial 101.8 mmHg (> 70.0); Potassium - ABG Lab 3.95 mmol/L (3.70-5.30); pH, Arterial 7.404 (7.35-7.45)
[2024-05-28 12:35] LABS: Actual Bicarbonate (HCO3a) 22.5 mEq/L (22-28); Analyzer IN Cardio OR; Base Excess (BEa) -2.1 mEq/L (-2.0 to +3.0); CO2 Tension 37.8 mmHg (35.0-45.0); Calcium, Ionized (arterial) 1.03 mmol/L (1.12-1.30); Carboxyhemoglobin (COHb) 0.3 gm% (0.0-3.0); Hematocrit-ABG 32 % (42.0-52.0); Hemoglobin (Hb) 10.8 g/dL (14.0-18.0); O2 Tension (PaO2), arterial 401.2 mmHg (> 70.0); pH, Arterial 7.393 (7.35-7.45)
[2024-05-28 12:35] LABS: Actual Bicarbonate (HCO3a) 26.2 mEq/L (22-28); Analyzer IN Cardio OR; Base Excess (BEa) 0.3 mEq/L (-2.0 to +3.0); CO2 Tension 47.9 mmHg (35.0-45.0); Calcium, Ionized (arterial) 1.06 mmol/L (1.12-1.30); Carboxyhemoglobin (COHb) 0.2 gm% (0.0-3.0); Hematocrit-ABG 30 % (42.0-52.0); Hemoglobin (Hb) 10.1 g/dL (14.0-18.0); O2 Tension (PaO2), arterial 349.1 mmHg (> 70.0); pH, Arterial 7.355 (7.35-7.45)
[2024-05-28 12:35] LABS: Actual Bicarbonate (HCO3a) 23.8 mEq/L (22-28); Analyzer IN Cardio OR; Base Excess (BEa) -1.9 mEq/L (-2.0 to +3.0); CO2 Tension 44.6 mmHg (35.0-45.0); Calcium, Ionized (arterial) 1.25 mmol/L (1.12-1.30); Carboxyhemoglobin (COHb) 0.1 gm% (0.0-3.0); Hematocrit-ABG 29 % (42.0-52.0); Hemoglobin (Hb) 9.8 g/dL (14.0-18.0); O2 Tension (PaO2), arterial 274.2 mmHg (> 70.0); Potassium - ABG Lab 4.55 mmol/L (3.70-5.30); pH, Arterial 7.345 (7.35-7.45)
[2024-05-28 12:35] LABS: Actual Bicarbonate (HCO3a) 23.9 mEq/L (22-28); Analyzer IN Cardio OR; Base Excess (BEa) -2.7 mEq/L (-2.0 to +3.0); CO2 Tension 48.9 mmHg (35.0-45.0); Calcium, Ionized (arterial) 1.13 mmol/L (1.12-1.30); Carboxyhemoglobin (COHb) 0.5 gm% (0.0-3.0); Hematocrit-ABG 38 % (42.0-52.0); Hemoglobin (Hb) 12.9 g/dL (14.0-18.0); O2 Tension (PaO2), arterial 92.9 mmHg (> 70.0); Potassium - ABG Lab 3.91 mmol/L (3.70-5.30); pH, Arterial 7.307 (7.35-7.45)
[2024-05-28 12:37] LABS: Actual Bicarbonate (HCO3a) 22.9 mEq/L (22-28); Analyzer IN Cardio OR; Base Excess (BEa) -2.5 mEq/L (-2.0 to +3.0); Calcium, Ionized (arterial) 1.18 mmol/L (1.12-1.30); Carboxyhemoglobin (COHb) 0.9 gm% (0.0-3.0); Hematocrit-ABG 37 % (42.0-52.0); Hemoglobin (Hb) 12.5 g/dL (14.0-18.0); O2 Tension (PaO2), arterial 82.4 mmHg (> 70.0); Potassium - ABG Lab 4.12 mmol/L (3.70-5.30); pH, Arterial 7.355 (7.35-7.45)
[2024-05-28 12:37] LABS: Actual Bicarbonate (HCO3a) 21.8 mEq/L (22-28); Analyzer IN Cardio OR; Base Excess (BEa) -3.1 mEq/L (-2.0 to +3.0); CO2 Tension 38.6 mmHg (35.0-45.0); Calcium, Ionized (arterial) 1.18 mmol/L (1.12-1.30); Carboxyhemoglobin (COHb) 0.6 gm% (0.0-3.0); Hematocrit-ABG 27 % (42.0-52.0); Hemoglobin (Hb) 9.1 g/dL (14.0-18.0); O2 Tension (PaO2), arterial 67.6 mmHg (> 70.0); Potassium - ABG Lab 3.99 mmol/L (3.70-5.30)
[2024-05-28 12:39] LABS: Puncture Site Arterial Line
[2024-05-28 12:39] LABS: Puncture Site Arterial Line
[2024-05-28 12:40] LABS: Puncture Site Arterial Line
[2024-05-28 12:40] LABS: Puncture Site Arterial Line
[2024-05-28 12:40] LABS: Puncture Site Arterial Line
[2024-05-28 12:41] LABS: Puncture Site Arterial Line
[2024-05-28 12:41] LABS: Puncture Site Arterial Line
[2024-05-29] MEDS: HYDROcodone/Acetaminophen 7.5/325 mg Tablet PO SCH (01:21)
[2024-05-29 04:14] LABS: #Basophils 0.06 10x3/uL (0.0-0.2); %Basophils 0.8 % (0.0-1.0); %Eosinophils 4.8 % (0.0-10.0); %Lymphocytes 17.4 % (21.0-51.0); %Monocytes 8.8 % (0.0-10.0); %Neutrophils 66.6 % (42.0-75.0); Hematocrit 26.2 % (42.0-52.0); Hemoglobin 8.1 g/dL (14.0-18.0); Mean Corpuscular HGB CONC 30.9 g/dL (32.0-36.0); Mean Corpuscular Hemoglobin 27.7 pg (27.0-31.0); Mean Corpuscular Volume 89.7 fL (78.0-98.0); Mean Platelet Volume 10.3 fL (7.4-10.4); Platelet Count 207 10x3/uL (130-400); RBC Distribution Width 14.1 % (11.5-14.5); Red Blood Cell (RBC) Count 2.92 mill/uL (4.70-6.10)
[2024-05-29 04:36] LABS: Anion Gap 11 mmol/L (10-20); BUN (Urea Nitrogen) 12 mg/dL (8.4-25.7); Calc. Creatinine Clearance 95 mL/min (70-130); Calcium 8.3 mg/dL (7.8-10.44); Carbon Dioxide 30 mmol/L (23-31); Chloride 104 mmol/L (98-107); Estimated GFR 77; Glucose 159 mg/dL (83-110); Potassium 4.3 mmol/L (3.5-5.1); Sodium 141 mmol/L (136-145)
[2024-05-29] MEDS: Potassium Chloride 10 MEQ TAB PO SCH (08:48)
[2024-05-29] MEDS: Furosemide 40 MG TAB PO SCH (08:49)
[2024-05-29] MEDS: HYDROcodone/Acetaminophen 7.5/325 mg Tablet PO PRN (09:19)
[2024-05-30 05:33] LABS: Anion Gap 14 mmol/L (10-20); BUN (Urea Nitrogen) 15 mg/dL (8.4-25.7); Calc. Creatinine Clearance 87 mL/min (70-130); Carbon Dioxide 31 mmol/L (23-31); Chloride 100 mmol/L (98-107); Estimated GFR 68; Glucose 119 mg/dL (83-110); Potassium 4.2 mmol/L (3.5-5.1); Sodium 141 mmol/L (136-145)
[2024-05-30] MEDS: Insulin Regular, Human 100 UNIT/ML 10 ML VIAL SC PRN (11:44)
[2024-05-30 11:57] VITALS: BP 98/54; TEMP 98.5
== END 2024-05-30 13:06 | disposition home or self-care (01) | DRG 233 ==
LOC: ERS 20:23 → SUATTDRO 20:23 → ERHOLD 22:50 → CCU 05-16 02:41 → IMCU/EMU 05-19 17:40 → CCU 05-21 10:44 → 2NO 05-25 13:23
PROVIDERS: ADMIT Family Medicine; ATTEND Internal Medicine
PROC: 5A1945Z Respiratory Ventilation, 24-96 Consecutive Hours (ICD-10-PCS; 2024-05-15)
PROC: 4A023N7 Measurement of Cardiac Sampling and Pressure, Left Heart, Percutaneous Approach (ICD-10-PCS; 2024-05-21)
PROC: B2111ZZ Fluoroscopy of Multiple Coronary Arteries using Low Osmolar Contrast (ICD-10-PCS; 2024-05-21)
PROC: 02100Z9 Bypass Coronary Artery, One Artery from Left Internal Mammary, Open Approach (ICD-10-PCS; principal; 2024-05-22)
PROC: 021209W Bypass Coronary Artery, Three Arteries from Aorta with Autologous Venous Tissue, Open Approach (ICD-10-PCS; 2024-05-22)
PROC: 06BQ4ZZ Excision of Left Saphenous Vein, Percutaneous Endoscopic Approach (ICD-10-PCS; 2024-05-22)
PROC: 06BP4ZZ Excision of Right Saphenous Vein, Percutaneous Endoscopic Approach (ICD-10-PCS; 2024-05-22)
PROC: 02L70CK Occlusion of Left Atrial Appendage with Extraluminal Device, Open Approach (ICD-10-PCS; 2024-05-22)
PROC: 5A1221Z Performance of Cardiac Output, Continuous (ICD-10-PCS; 2024-05-22)
PROC: 0JH608Z Insertion of Defibrillator Generator into Chest Subcutaneous Tissue and Fascia, Open Approach (ICD-10-PCS; 2024-05-28)
PROC: 02H63KZ Insertion of Defibrillator Lead into Right Atrium, Percutaneous Approach (ICD-10-PCS; 2024-05-28)
PROC: 02HK3KZ Insertion of Defibrillator Lead into Right Ventricle, Percutaneous Approach (ICD-10-PCS; 2024-05-28)
PROC: 3E0132A Introduction of Anti-Infective Envelope into Subcutaneous Tissue, Percutaneous Approach (ICD-10-PCS; 2024-05-28)
DX: I49.01 Ventricular fibrillation (principal); G93.41 Metabolic encephalopathy; J96.00 Acute respiratory failure, unspecified whether with hypoxia or hypercapnia; R57.8 Other shock; J18.9 Pneumonia, unspecified organism; J96.01 Acute respiratory failure with hypoxia; N17.9 Acute kidney failure, unspecified; I25.10 Atherosclerotic heart disease of native coronary artery without angina pectoris; I25.2 Old myocardial infarction; K21.9 Gastro-esophageal reflux disease without esophagitis; E78.00 Pure hypercholesterolemia, unspecified; E87.5 Hyperkalemia; D72.829 Elevated white blood cell count, unspecified; G47.33 Obstructive sleep apnea (adult) (pediatric); I46.2 Cardiac arrest due to underlying cardiac condition; I27.20 Pulmonary hypertension, unspecified; E11.65 Type 2 diabetes mellitus with hyperglycemia; E66.9 Obesity, unspecified; R13.12 Dysphagia, oropharyngeal phase; R59.1 Generalized enlarged lymph nodes; E11.22 Type 2 diabetes mellitus with diabetic chronic kidney disease; I12.9 Hypertensive chronic kidney disease with stage 1 through stage 4 chronic kidney disease, or unspecified chronic kidney disease; Z91.148 Patient's other noncompliance with medication regimen for other reason; Z95.5 Presence of coronary angioplasty implant and graft; Z99.89 Dependence on other enabling machines and devices; Z79.899 Other long term (current) drug therapy; Z79.82 Long term (current) use of aspirin; Z79.4 Long term (current) use of insulin; Z79.84 Long term (current) use of oral hypoglycemic drugs; Z68.36 Body mass index [BMI] 36.0-36.9, adult; N18.9 Chronic kidney disease, unspecified
CPT/HCPCS: 33249; 36415; 36416; 36600; 51702; 70450; 71045; 71275; 74177; 80048; 80053; 80061; 80202; 81001; 82805; 83036; 83605; 83690; 83735; 83880; 84100; 84145; 84443; 84484; 85025; 85347; 85610; 85730; 86850; 86900; 86901; 87040; 87086; 93005; 93010; 93306; 93458; 93798; 93880; 94002; 94003; 94150; 94660; 96365; 96366; 96367; 97139; 99152; A4311; A4648; C1751; C1763; C1769; C1777; C1889; C1894; C1898; J0171; J0360; J0456; J0665; J0692; J0696; J1100; J1580; J1644; J1815; J1940; J2003; J2060; J2150; J2250; J2272; J2440; J2470; J2543; J2704; J2720; J3010; J3370; J3475; J3480; J3490; J7030; J7042; J7050; J7120; J7620; P9045; Q9967; S0017

== ENCOUNTER 2025-03-13 06:27 | Emergency (ER) | payer MEDICARE ==
[2025-03-13 07:03] LABS: #Basophils 0.10 10x3/uL (0.0-0.2); #Eosinophils 0.19 10x3/uL (0.0-0.7); #Monocytes 0.53 10x3/uL (0.11-0.59); #Neutrophils 6.72 10x3/uL (1.40-6.50); %Basophils 1.1 % (0.0-1.0); %Eosinophils 2.1 % (0.0-10.0); %Lymphocytes 17.4 % (21.0-51.0); %Monocytes 5.7 % (0.0-10.0); %Neutrophils 72.5 % (42.0-75.0); Hematocrit 39.7 % (42.0-52.0); Hemoglobin 13.1 g/dL (14.0-18.0); Mean Corpuscular Hemoglobin 27.3 pg (27.0-31.0); Mean Corpuscular Volume 82.7 fL (78.0-98.0); Platelet Count 147 10x3/uL (130-400); Red Blood Cell (RBC) Count 4.80 mill/uL (4.70-6.10); White Blood Cell (WBC) Count 9.26 10x3/uL (4.8-10.8)
[2025-03-13 07:12] LABS: Troponin I 0.012 ng/mL (< 0.028)
[2025-03-13 07:13] LABS: ALT (SGPT) 30 U/L (Less than 45); AST (SGOT) 36 U/L (11-34); Albumin 4.0 g/dL (3.1-4.5); Alkaline Phosphatase 73 U/L (40-110); Anion Gap 17 mmol/L (10-20); BUN (Urea Nitrogen) 21 mg/dL (8.4-25.7); Bilirubin, Total 0.5 mg/dL (0.3-1.2); Calc. Creatinine Clearance 0 mL/min (70-130); Calcium 9.1 mg/dL (7.8-10.44); Carbon Dioxide 17 mmol/L (23-31); Chloride 109 mmol/L (98-107); Globulin 3.0 g/dL (2.4-3.5); Glucose 123 mg/dL (83-110); Potassium 4.2 mmol/L (3.5-5.1); Sodium 139 mmol/L (136-145)
[2025-03-13 07:17] LABS: CAUTI Indications for Culture Dysuria,urgency,freq; Glucose, Urine (Dipstick) Normal (Negative); Leukocyte Negative Leu/uL (Negative); Protein, Urine (Dipstick) Negative (Neg-Trace); RBC/HPF 0-3 HPF (0-3); Specific Gravity, Urine 1.011 (1.002-1.036); WBC/HPF 0-3 HPF (0-3)
[2025-03-13 07:19] LABS: Bacteria/HPF Rare-Few HPF (None Seen)
[2025-03-13 07:20] LABS: Urine Culture Reflex No No
[2025-03-13] MEDS ORDERED: HYDROcodone/Acetaminophen 5/325 mg Tablet ONE (10:21)
[2025-03-13] MEDS ORDERED: HYDROcodone/Acetaminophen 10/325 mg Tablet ONE (10:22)
[2025-03-13] MEDS ORDERED: Iopamidol-370 76% 500 ML MDV (1 ML CHARGE) ONE (11:36)
== END 2025-03-13 10:07 | disposition home or self-care (01) ==
LOC: ERS 06:27
DX: C61 Malignant neoplasm of prostate (principal); R33.9 Retention of urine, unspecified; E11.9 Type 2 diabetes mellitus without complications; E78.00 Pure hypercholesterolemia, unspecified; I10 Essential (primary) hypertension; Z79.84 Long term (current) use of oral hypoglycemic drugs; Z79.899 Other long term (current) drug therapy; Z79.82 Long term (current) use of aspirin; Z95.0 Presence of cardiac pacemaker
CPT/HCPCS: 51702; 74177; 80053; 81001; 84484; 85025; 93005; 96374; 99284; J2270; Q9967; 36415

== ENCOUNTER 2025-03-17 12:30 | Outpatient (CLI) | payer MEDICARE | END 2025-03-17 12:31 | disposition home or self-care (01) | LOC: PET 12:30 | PROVIDERS: ATTEND Urology | DX: C61 Malignant neoplasm of prostate (principal) | CPT/HCPCS: 78815; A9595 ==

== ENCOUNTER 2025-03-21 15:21 | Emergency (ER) | payer MEDICARE ==
[2025-03-21] MEDS ORDERED: HYDROcodone/Acetaminophen 5/325 mg Tablet ONE (17:39)
== END 2025-03-21 20:47 | disposition home or self-care (01) ==
LOC: ERS 15:21
DX: T83.091A Other mechanical complication of indwelling urethral catheter, initial encounter (principal); C61 Malignant neoplasm of prostate; I25.2 Old myocardial infarction; K21.9 Gastro-esophageal reflux disease without esophagitis; E11.9 Type 2 diabetes mellitus without complications; I48.91 Unspecified atrial fibrillation; E78.5 Hyperlipidemia, unspecified; Z95.5 Presence of coronary angioplasty implant and graft; Z95.0 Presence of cardiac pacemaker; Z79.82 Long term (current) use of aspirin; Z79.84 Long term (current) use of oral hypoglycemic drugs; Z79.4 Long term (current) use of insulin; Z79.899 Other long term (current) drug therapy
CPT/HCPCS: 87077; 87086; 87186; 99283

== ENCOUNTER 2025-04-16 09:51 | Outpatient (CLI) | payer MEDICARE ==
[2025-04-16 11:22] LABS: #Basophils 0.07 10x3/uL (0.0-0.2); #Eosinophils 0.32 10x3/uL (0.0-0.7); #Monocytes 0.90 10x3/uL (0.11-0.59); #Neutrophils 8.99 10x3/uL (1.40-6.50); %Basophils 0.6 % (0.0-1.0); %Eosinophils 2.6 % (0.0-10.0); %Lymphocytes 16.3 % (21.0-51.0); %Monocytes 7.3 % (0.0-10.0); %Neutrophils 72.3 % (42.0-75.0); Hematocrit 44.0 % (42.0-52.0); Hemoglobin 13.4 g/dL (14.0-18.0); Mean Corpuscular Hemoglobin 26.7 pg (27.0-31.0); Mean Corpuscular Volume 87.8 fL (78.0-98.0); Platelet Count 132 10x3/uL (130-400); Red Blood Cell (RBC) Count 5.01 mill/uL (4.70-6.10); White Blood Cell (WBC) Count 12.41 10x3/uL (4.8-10.8)
[2025-04-16 11:36] LABS: INR-International Normal Ratio 1.0; Prothrombin Time 13.7 sec (12.0-14.7)
[2025-04-16 11:37] LABS: PTT 26.0 sec (22.9-36.1)
[2025-04-16 11:42] LABS: Anion Gap 15 mmol/L (10-20); BUN (Urea Nitrogen) 26 mg/dL (8.4-25.7); Calc. Creatinine Clearance 0 mL/min (70-130); Calcium 9.3 mg/dL (7.8-10.44); Carbon Dioxide 20 mmol/L (23-31); Chloride 110 mmol/L (98-107); Glucose 99 mg/dL (83-110); Potassium 3.8 mmol/L (3.5-5.1); Sodium 141 mmol/L (136-145)
== END 2025-04-16 09:52 | disposition home or self-care (01) ==
LOC: LABBT 09:51
PROVIDERS: ATTEND Urology
DX: Z01.812 Encounter for preprocedural laboratory examination (principal); C61 Malignant neoplasm of prostate; R33.9 Retention of urine, unspecified; N39.0 Urinary tract infection, site not specified; R30.0 Dysuria
CPT/HCPCS: 80048; 85025; 85610; 85730; 87086

== ENCOUNTER 2025-07-11 08:48 | Outpatient (CLI) | payer MEDICARE ==
[2025-07-11 09:42] LABS: Estimated GFR - POC 49.0
[2025-07-11] MEDS ORDERED: Iopamidol 370 76% 100 ML VIAL ONE (11:13)
== END 2025-07-11 08:49 | disposition home or self-care (01) ==
LOC: CT 08:48
PROVIDERS: ATTEND Internal Medicine
DX: C61 Malignant neoplasm of prostate (principal); R59.0 Localized enlarged lymph nodes; I25.10 Atherosclerotic heart disease of native coronary artery without angina pectoris
CPT/HCPCS: 36415; 71260; 74177; 82565; Q9967